=== PATIENT | male | born 1980 | race Two or more races ===

== ENCOUNTER 2017-02-25 02:48 | Emergency (ER) | payer MEDICAID, OTHER ==
[2017-02-25 02:59] VITALS: BP 128/90
[2017-02-25] MEDS ORDERED: Sodium Chloride 0.9% 1,000 ML IV STA (03:08)
[2017-02-25] MEDS ORDERED: Sodium Chloride 0.9% 10 ML Syringe FLUSH PRN (03:08)
--- NOTE | 2017-02-25 04:22 | EDM.PDOC ---
ED HPI GENERAL MEDICAL PROBLEM - General Chief Complaint: Gastrointestinal Problem Stated Complaint: poss food poisoning Time Seen by Provider: 02/25/17 03:02 Source of Information: Reports: Patient History Limitations: Reports: No Limitations - History of Present Illness INITIAL COMMENTS - FREE TEXT/NARRATIVE: The patient presents with diarrhea. This has been going on for a few days. He recently switched from metformin and invonka to the combination pill. He has also not been eating good. He has been out of town working and eating lots of gas station food. He has been incontinent of stool at times. He has no fever, chills, cough, chest pain or shortness of breath. He has no abdominal pain, nausea or vomiting. Onset: Gradual Duration: Day(s): Improves with: Reports: None Worsens with: Reports: None Associated Symptoms: Denies: Chest Pain, Fever/Chills, Nausea/Vomiting, Shortness of Breath Abdomen Pain Score (Numeric/FACES): 4 - Related Data Allergies Allergy/AdvReac Type Severity Reaction Status Date / Time No Known Allergies Allergy Verified 02/25/17 02:59 Home Meds: Home Meds Canagliflozin/Metformin HCl [Invokamet 50-1,000 mg Tablet] 1 tab PO BID [History] Ciprofloxacin HCl [Cipro] 500 mg PO BID #6 tablet 02/25/17 [Rx] Past Medical History Cardiovascular History: Reports: None Respiratory History: Reports: None Gastrointestinal History: Reports: None Genitourinary History: Reports: None Musculoskeletal History: Reports: None Neurological History: Reports: None Psychiatric History: Reports: None Endocrine/Metabolic History: Reports: Diabetes, Type II Hematologic History: Reports: None Immunologic History: Reports: None Oncologic (Cancer) History: Reports: None - Past Surgical History Head Surgeries/Procedures: Reports: None HEENT Surgical History: Reports: Other (See Below) Dermatological Surgical History: Reports: Other (See Below) Social & Family History - Tobacco Use Smoking Status *Q: Unknown Ever Smoked Years of Tobacco use: 16 Packs/Tins Daily: 0.2 Used Tobacco, but Quit: No - Caffeine Use Caffeine Use: Reports: Coffee, Energy Drinks, Soda - Alcohol Use Days Per Week of Alcohol Use: 1 Number of Drinks Per Day: 12 Total Drinks Per Week: 12 - Recreational Drug Use Recreational Drug Use: Yes Drug Use in Last 12 Months: Yes Recreational Drug Type: Reports: Methamphetamine Recreational Drug Use Frequency: Not Used In Over 1 Month Recreational Drug Last Use: September 2014 - Living Situation & Occupation Living situation: Reports: Occupation: Employed ED ROS GENERAL - Review of Systems Review Of Systems: See Below Constitutional: Reports: No Symptoms HEENT: Reports: No Symptoms Respiratory: Reports: No Symptoms Cardiovascular: Reports: No Symptoms Endocrine: Reports: No Symptoms GI/Abdominal: Reports: Diarrhea. Denies: Abdominal Pain, Nausea, Vomiting : Reports: No Symptoms Musculoskeletal: Reports: No Symptoms ED EXAM, GI/ABD - Physical Exam Exam: See Below Exam Limited By: No Limitations General Appearance: Alert, No Apparent Distress Ears: Normal External Exam Nose: Normal Inspection Head: Atraumatic, Normocephalic Neck: Normal Inspection Respiratory/Chest: No Respiratory Distress, Lungs Clear, Normal Breath Sounds Cardiovascular: Regular Rate, Rhythm, No Edema, No Murmur GI/Abdominal: Soft, Non-Tender, No Organomegaly, No Mass Back Exam: Normal Inspection Extremities: Normal Inspection Course - Vital Signs Last Recorded V/S: Last Vital Signs Temp 98.2 F 02/25/17 02:53 Pulse 70 02/25/17 02:53 Resp 18 02/25/17 02:53 BP 128/90 02/25/17 02:53 Pulse Ox 98 02/25/17 02:53 Orthostatic Blood Pressure [ 115/87 Standing] Orthostatic Blood Pressure [ 128/90 Supine] - Orders/Labs/Meds Orders: Active Orders 24 hr Category Date Time Status Peripheral IV Care [RC] . DIRECTED Care 02/25/17 03:08 Active C DIFFICILE BY PCR W/NAP1 [MOLEC] Stat Lab 02/25/17 03:29 Received CULTURE STOOL + SHIGATOX [RM] Stat Lab 02/25/17 03:29 Ordered Sodium Chloride 0.9% [Saline Flush] Med 02/25/17 03:08 Active 10 ml FLUSH ASDIRECTED PRN Peripheral IV Insertion Adult [OM.PC] Stat Oth 02/25/17 03:08 Ordered Medication Orders Sodium Chloride (Saline Flush) 10 ml FLUSH ASDIRECTED PRN PRN Reason: Keep Vein Open Last Admin: 02/25/17 03:15 Dose: 10 ml Labs: Laboratory Tests 02/25/17 02/25/17 Range/Units 03:15 03:15 WBC 8.00 (4.23-9.07) K/mm3 RBC 4.40 L (4.63-6.08) M/mm3 Hgb 13.2 L (13.7-17.5) gm/L Hct 38.4 L (40.1-51.0) % MCV 87.3 (79.0-92.2) fl MCH 30.0 (25.7-32.2) pg MCHC 34.4 (32.2-35.5) g/dl RDW Std Deviation 42.5 (35.1-43.9) fL Plt Count 179 (163-337) K/mm3 MPV 10.8 (9.4-12.3) fl Neut % (Auto) 53.0 (34.0-67.9) % Lymph % (Auto) 34.8 (21.8-53.1) % [place] % (Auto) 9.3 (5.3-12.2) % Eos % (Auto) 2.3 (0.8-7.0) Baso % (Auto) 0.3 (0.1-1.2) % Neut # (Auto) 4.26 (1.78-5.38) K/mm3 Lymph # (Auto) 2.78 (1.32-3.57) K/mm3 [place] # (Auto) 0.74 (0.30-0.82) K/mm3 Eos # (Auto) 0.18 (0.04-0.54) K/mm3 Baso # (Auto) 0.02 (0.01-0.08) K/mm3 Sodium 138 (136-145) mEq/L Potassium 4.1 (3.5-5.1) mEq/L Chloride 103 (98-107) mEq/L Carbon Dioxide 28 (21-32) mEq/L Anion Gap 11.1 (5-15) BUN 19 H (7-18) mg/dL Creatinine 1.1 (0.7-1.3) mg/dL Est Cr Clr Drug Dosing TNP Estimated GFR (MDRD) > 60 (>60) mL/min BUN/Creatinine Ratio 17.3 (14-18) Glucose 306 H (74-106) mg/dL Calcium 8.6 (8.5-10.1) mg/dL Total Bilirubin 0.3 (0.2-1.0) mg/dL AST 9 L (15-37) U/L ALT 19 (16-63) U/L Alkaline Phosphatase 121 H (46-116) U/L Total Protein 7.1 (6.4-8.2) g/dl Albumin 3.4 (3.4-5.0) g/dl Globulin 3.7 gm/dL Albumin/Globulin Ratio 0.9 L (1-2) Lipase 84 (73-393) U/L Meds: Medications Generic Name Dose Route Start Last Admin Trade Name Freq PRN Reason Stop Dose Admin Sodium Chloride 10 ml 02/25/17 03:08 02/25/17 03:15 Saline Flush FLUSH 10 ml ASDIRECTED PRN Administration Keep Vein Open Discontinued Medications Generic Name Dose Route Start Last Admin Trade Name Freq PRN Reason Stop Dose Admin Sodium Chloride 1,000 mls @ 1,000 mls/hr 02/25/17 03:08 02/25/17 03:18 Normal Saline IV 02/25/17 04:07 1,000 mls/hr .BOLUS STA Administration - Re-Assessments/Exams Free Text/Narrative Re-Assessment/Exam: 02/25/17 04:22 I have ordered an IV NS bolus, labs and a stool sample. His stool was black and my nurse checked it and it was negative. His CBC looks good. His blood sugar was 309. I will not have stool results for a few days. This could be infectious. This may also be from his medication. I will give him a dose of levaquin here and get him on some cipro for a few days. I will have him follow up with Noelle about getting back on his old medication. Departure - Departure Time of Disposition: 04:35 Disposition: Home, Self-Care 01 Condition: Good Clinical Impression: Diarrhea Qualifiers: Diarrhea type: unspecified type Qualified Code(s): R19.7 - Diarrhea, unspecified - Discharge Information Prescriptions: Ciprofloxacin HCl [Cipro] 500 mg PO BID #6 tablet Referrals: Noelle Newman PA [Primary Care Provider] - 2 Days Forms: ED Department Discharge Additional Instructions: Take the cipro 2 times per day. Call Noelle and see if you can get back on your old medication. Drink plenty of fluids. Please return if you are worse. - My Orders Last 24 Hours: My Active Orders 02/25/17 03:08 Peripheral IV Care [RC] . DIRECTED Sodium Chloride 0.9% [Saline Flush] 10 ml FLUSH ASDIRECTED PRN Peripheral IV Insertion Adult [OM.PC] Stat 02/25/17 03:29 C DIFFICILE BY PCR W/NAP1 [MOLEC] Stat CULTURE STOOL + SHIGATOX [RM] Stat - Assessment/Plan Last 24 Hours: My Active Orders 02/25/17 03:08 Peripheral IV Care [RC] . DIRECTED Sodium Chloride 0.9% [Saline Flush] 10 ml FLUSH ASDIRECTED PRN Peripheral IV Insertion Adult [OM.PC] Stat 02/25/17 03:29 C DIFFICILE BY PCR W/NAP1 [MOLEC] Stat CULTURE STOOL + SHIGATOX [RM] Stat
[2017-02-25] MEDS ORDERED: Levofloxacin 500 MG Tab PO ONE (04:36)
== END 2017-02-25 04:55 | disposition home or self-care (01) ==
LOC: EDBD → JD.ED 02:48 → EDBD 02:48 → JD.ED 04:55
DX: R19.7 Diarrhea, unspecified (principal); E11.9 Type 2 diabetes mellitus without complications
CPT/HCPCS: 36415; 80053; 83690; 85025; 87046; 87427; 87493; 96360; 99284; A9270; J7040; J7050; 99282

== ENCOUNTER 2017-05-25 19:47 | Emergency (ER) | payer BC, MEDICAID ==
[2017-05-25 20:03] VITALS: BP 128/83
--- NOTE | 2017-05-25 21:15 | EDM.PDOC ---
ED HPI GENERAL MEDICAL PROBLEM - General Chief Complaint: Lower Extremity Injury/Pain Stated Complaint: POSS FOOT INFECTION Time Seen by Provider: 05/25/17 20:15 Source of Information: Reports: Patient History Limitations: Reports: No Limitations - History of Present Illness INITIAL COMMENTS - FREE TEXT/NARRATIVE: 36-year-old male presents for evaluation treatment of swelling, redness, pain and purulent discharge from the right great toe. Patient first noticed the symptoms this morning. He is a type II diabetic on oral medications. has had anything like this before. Reports purulent discharge from the lateral aspect the right foot great toe. Also has appreciated increased swelling, pain and redness to the right great toe. He denies any fevers, chills, nausea or vomiting. Does not see a homicide detective regularly. Onset: Today, Sudden Location: Reports: Lower Extremity, Right Left Feet Pain Score (Numeric/FACES): 0 - Related Data Allergies Allergy/AdvReac Type Severity Reaction Status Date / Time No Known Allergies Allergy Verified 02/25/17 02:59 Home Meds: Home Meds Canagliflozin/Metformin HCl [Invokamet 50-1,000 mg Tablet] 1 tab PO 02/25/17 [ History] Canagliflozin [Invokana] 300 mg PO 05/25/17 [History] Cephalexin [IJD: Cephalexin] 500 mg PO .EVERY 8 HOURS #30 cap 05/25/17 [Rx] Sulfamethoxazole/Trimethoprim [Bactrim Ds Tablet] 1 each PO BID #20 tablet 05/25 [Rx] metFORMIN HCl [Metformin HCl] 1,000 mg PO BID 05/25/17 [History] Past Medical History Cardiovascular History: Reports: None Respiratory History: Reports: None Gastrointestinal History: Reports: None Genitourinary History: Reports: None Musculoskeletal History: Reports: None Neurological History: Reports: None Psychiatric History: Reports: None Endocrine/Metabolic History: Reports: Diabetes, Type II Hematologic History: Reports: None Immunologic History: Reports: None Oncologic (Cancer) History: Reports: None - Past Surgical History Head Surgeries/Procedures: Reports: None HEENT Surgical History: Reports: Other (See Below) Dermatological Surgical History: Reports: Other (See Below) Social & Family History - Tobacco Use Smoking Status *Q: Current Every Day Smoker Years of Tobacco use: 22 Packs/Tins Daily: 0.5 Used Tobacco, but Quit: No - Caffeine Use Caffeine Use: Reports: Coffee, Energy Drinks, Soda - Alcohol Use Days Per Week of Alcohol Use: 1 Number of Drinks Per Day: 12 Total Drinks Per Week: 12 - Recreational Drug Use Recreational Drug Use: No Drug Use in Last 12 Months: Yes Recreational Drug Type: Reports: Methamphetamine Recreational Drug Use Frequency: Not Used In Over 1 Month Recreational Drug Last Use: September 2014 - Living Situation & Occupation Living situation: Reports: Occupation: Employed Review of Systems - Review of Systems Review Of Systems: See Below Constitutional: Denies: Chills, Fever GI/Abdominal: Denies: Nausea, Vomiting Musculoskeletal: Reports: Foot Pain (right great toe swelling, erythema, pain and discharge from the lateral aspect of the great toe nail) Skin: Reports: Erythema ED EXAM, GENERAL - Physical Exam Exam: See Below Exam Limited By: No Limitations General Appearance: Alert, WD/WN, No Apparent Distress Respiratory/Chest: No Respiratory Distress Cardiovascular: Normal Peripheral Pulses, Regular Rate, Rhythm Peripheral Pulses: 2+: Posterior Tibial (L), Posterior Tibial (R), Dorsalis Pedis (L), Dorsalis Pedis (R) Extremities: Normal Inspection, Other (tenderness to palpation of the right great toe, swelling and erythema noted to the right great toe; approximately 1cm in diameter abscess to the lateral aspect of the nail with an open area and drainage present) Neurological: Alert, Oriented, Normal Cognition Psychiatric: Normal Affect, Normal Mood Skin Exam: Warm, Dry, Normal Color Course - Vital Signs Last Recorded V/S: Last Vital Signs Temp 36.4 C 05/25/17 20:00 Pulse 86 05/25/17 20:00 Resp 16 05/25/17 20:00 BP 128/83 05/25/17 20:00 Pulse Ox 98 05/25/17 20:00 - Orders/Labs/Meds Orders: Active Orders 24 hr Category Date Time Status CULTURE WOUND [RM] Stat Lab 05/25/17 20:57 Results - Re-Assessments/Exams Free Text/Narrative Re-Assessment/Exam: 05/25/17 21:06 Culture obtained. Follow-up with podiatry. Bactrim and cephalexin started. Discharge instructions as documented. Departure - Departure Time of Disposition: 21:10 Disposition: Home, Self-Care 01 Condition: Fair Clinical Impression: Paronychia of great toe of right foot - Discharge Information Prescriptions: Cephalexin [IJD: Cephalexin] 500 mg PO .EVERY 8 HOURS #30 cap Sulfamethoxazole/Trimethoprim [Bactrim Ds Tablet] 1 each PO BID #20 tablet Instructions: Paronychia, [id number] Referrals: Noelle Newman PA [Primary Care Provider] - Arsen Moreno II, DPM [Physician] - Forms: ED Department Discharge, ED Return to Work/School Form Additional Instructions: soap the foot in epsome salt and warm water 2-3 times a day for 20-30 minutes Bactrim one tablet twice a day for 10 days. Cephalexin 1 tab 3 times a day for 10 days. Take antibiotics with some food. Follow-up with podiatry this week. Recommend Dr. Moreno. Please call [phone] to schedule an appointment with him at the [facility]. [id number] Tylenol or Motrin as needed for pain relief. Please return to the ER if your symptoms change or worsen. - My Orders Last 24 Hours: My Active Orders 05/25/17 20:57 CULTURE WOUND [RM] Stat - Assessment/Plan Last 24 Hours: My Active Orders 05/25/17 20:57 CULTURE WOUND [RM] Stat
== END 2017-05-25 21:23 | disposition home or self-care (01) ==
LOC: JD.ED 19:47
DX: L03.031 Cellulitis of right toe (principal); L02.611 Cutaneous abscess of right foot; E11.9 Type 2 diabetes mellitus without complications; F17.210 Nicotine dependence, cigarettes, uncomplicated; Z79.84 Long term (current) use of oral hypoglycemic drugs
CPT/HCPCS: 87070; 87077; 87186; 99283; 99284

== ENCOUNTER 2017-09-16 22:07 | Emergency (ER) | payer BC, MEDICAID ==
[2017-09-16 22:28] VITALS: BP 143/82
--- NOTE | 2017-09-16 22:42 | EDM.PDOC ---
ED HPI GENERAL MEDICAL PROBLEM - General Chief Complaint: Abdominal Pain Stated Complaint: LEFT SIDE PAIN Time Seen by Provider: 09/16/17 22:38 Source of Information: Reports: Patient History Limitations: Reports: No Limitations - History of Present Illness INITIAL COMMENTS - FREE TEXT/NARRATIVE: 36-year-old male presents to the ED with diffuse periumbilical pain that intermittently radiates up into his left upper quadrant and left flank area. States it's been coming and going for the last 2-3 days. He did drink alcohol quite heavily around Stewart time but he never drank heavily over New Year's. He is worried that his pancreas might be sick. By history he has had pancreatitis in the past. States his bowel function is fairly normal although stools tend to be quite firm. Denies any genitourinary complaints or any obvious hematuria. No history of kidney stones. Pain does tend to come and go i.e. colicky component he has had no fever or chills. Eating well. Patient is a type II diabetic controlled with metformin and Invokana. Invocana is known to cause pancreatitis. He reports she's been on off this medication mostly for about a year. Of note he does not take check his blood sugars. Therefore really has no idea how well his diabetes is controlled. Onset: Gradual (Intermittent problems over the last 2-3 days) Onset Date: 09/14/17 Duration: Day(s): (Has been having intermittent abdominal pain for the last 3 days.) Location: Reports: Abdomen (Her umbilical pain radiating to the left upper abdomen and left flank area.), Back (Left flank area.) Quality: Reports: Ache, Other (Pain is constant but has a strong colicky component.) Severity: Moderate (Not necessary worse by eating.) Improves with: Reports: None Worsens with: Reports: None Context: Denies: Activity, Exercise, Lifting, Sick Contact, Trauma, Other Associated Symptoms: Denies: No Other Symptoms, Confusion, Chest Pain, Cough, cough w sputum, Diaphoresis, Fever/Chills, Headaches, Loss of Appetite, Malaise , Nausea/Vomiting, Rash, Seizure, Shortness of Breath, Syncope, Weakness, Other Treatments 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 (see below) Abdominal Pain Score (Numeric/FACES): 4 - Related Data Allergies Allergy/AdvReac Type Severity Reaction Status Date / Time No Known Allergies Allergy Verified 09/16/17 22:23 Home Meds: Home Meds Canagliflozin [Invokana] 300 mg PO DAILY 05/25/17 [History] metFORMIN HCl [Metformin HCl] 1,000 mg PO BID 05/25/17 [History] Past Medical History Cardiovascular History: Reports: None Respiratory History: Reports: None Gastrointestinal History: Reports: None Genitourinary History: Reports: None Musculoskeletal History: Reports: None Neurological History: Reports: None Psychiatric History: Reports: None Endocrine/Metabolic History: Reports: Diabetes, Type II Hematologic History: Reports: None Immunologic History: Reports: None Oncologic (Cancer) History: Reports: None - Past Surgical History Head Surgeries/Procedures: Reports: None HEENT Surgical History: Reports: Other (See Below) Dermatological Surgical History: Reports: Other (See Below) Social & Family History - Tobacco Use Smoking Status *Q: Former Smoker Years of Tobacco use: 22 Packs/Tins Daily: 0.5 Used Tobacco, but Quit: Yes Month Tobacco Last Used: 09/13/17 - Caffeine Use Caffeine Use: Reports: Coffee - Alcohol Use Days Per Week of Alcohol Use: 1 Number of Drinks Per Day: 12 Total Drinks Per Week: 12 - Recreational Drug Use Recreational Drug Use: Yes Drug Use in Last 12 Months: Yes Recreational Drug Type: Reports: Marijuana/Hashish, Methamphetamine Other Recreational Drug Type: pt stopped using, it has been 6 months Recreational Drug Use Frequency: Not Used In Over 1 Month Recreational Drug Last Use: September 2014 - Living Situation & Occupation Living situation: Reports: Occupation: Employed ED ROS GENERAL - Review of Systems Review Of Systems: See Below Constitutional: Denies: Fever, Chills, Malaise, Weakness, Fatigue, Decreased Appetite, Weight Loss HEENT: Reports: No Symptoms Respiratory: Reports: No Symptoms Cardiovascular: Reports: No Symptoms Endocrine: Reports: Fatigue GI/Abdominal: Reports: Abdominal Pain (Periumbilical and then radiates to the left upper quadrant of the abdomen is slightly into the left flank area. Patient pain tends to come and go.), Constipation. Denies: Diarrhea, Nausea, Vomiting : Reports: No Symptoms Musculoskeletal: Reports: No Symptoms Skin: Reports: No Symptoms Neurological: Reports: No Symptoms Psychiatric: Reports: No Symptoms Hematologic/Lymphatic: Reports: No Symptoms Immunologic: Reports: No Symptoms ED EXAM, GI/ABD - Physical Exam Exam: See Below Exam Limited By: No Limitations General Appearance: Alert, WD/WN, No Apparent Distress Eyes: Bilateral: Normal Appearance (No jaundice.) Throat/Mouth: Normal Inspection, Normal Lips, Normal Oropharynx Head: Atraumatic, Normocephalic Neck: Normal Inspection, Supple, Non-Tender, Full Range of Motion. No: Lymphadenopathy (L), Lymphadenopathy (R) Respiratory/Chest: No Respiratory Distress, Lungs Clear, Normal Breath Sounds, Chest Non-Tender, Decreased Breath Sounds Cardiovascular: Normal Peripheral Pulses, Regular Rate, Rhythm, No Edema, No Gallop, No Murmur, No Rub GI/Abdominal Exam: Normal Bowel Sounds, Soft, No Abnormal Bruit, No Mass, Pelvis Stable, Tender (Patient has tenderness across the upper abdomen. To deep palpation along the right costal margin as well as the left costal margin and it seems to be quite diffuse. It is almost all supraumbilical.). No: Abnormal Bowel Sounds (Male) Exam: Normal Inspection Back Exam: Normal Inspection, Full Range of Motion, Paraspinal Tenderness. No: CVA Tenderness (L), CVA Tenderness (R) Extremities: Normal Range of Motion, Non-Tender, Normal Capillary Refill Neurological: Alert, Oriented, CN II-XII Intact, Normal Cognition Psychiatric: Normal Affect, Normal Mood Skin Exam: Warm, Dry, Intact, Normal Color, No Rash Course - Vital Signs Last Recorded V/S: Last Vital Signs Temp 36.1 C 09/16/17 22:24 Pulse 85 09/16/17 22:24 Resp 18 09/16/17 22:24 BP 143/82 H 09/16/17 22:24 Pulse Ox 97 09/16/17 22:24 - Orders/Labs/Meds Orders: Active Orders 24 hr Category Date Time Status Abdomen 1V Flat [CR] Stat Exams 09/16/17 22:48 Taken Labs: Laboratory Tests 09/16/17 09/16/17 09/16/17 Range/Units 23:04 23:04 23:04 WBC 8.21 (4.23-9.07) K/mm3 RBC 4.54 L (4.63-6.08) M/mm3 Hgb 13.8 (13.7-17.5) gm/L Hct 39.6 L (40.1-51.0) % MCV 87.2 (79.0-92.2) fl MCH 30.4 (25.7-32.2) pg MCHC 34.8 (32.2-35.5) g/dl RDW Std Deviation 41.4 (35.1-43.9) fL Plt Count 181 (163-337) K/mm3 MPV 10.3 (9.4-12.3) fl Neutrophils % (Manual) 54 (40-60) % Band Neutrophils % 0 (0-10) % Lymphocytes % (Manual) 28 (20-40) % Atypical Lymphs % 6 % Monocytes % (Manual) 8 (2-10) % Eosinophils % (Manual) 2 (0.8-7.0) % Basophils % (Manual) 2 H (0.2-1.2) Platelet Estimate Adequate Plt Morphology Comment Normal RBC Morph Comment Normal PT 9.4 (8.0-13.0) SECONDS INR 0.87 Sodium 137 (136-145) mEq/L Potassium 4.1 (3.5-5.1) mEq/L Chloride 101 (98-107) mEq/L Carbon Dioxide 27 (21-32) mEq/L Anion Gap 13.1 (5-15) BUN 22 H (7-18) mg/dL Creatinine 1.2 (0.7-1.3) mg/dL Est Cr Clr Drug Dosing 80.33 mL/min Estimated GFR (MDRD) > 60 (>60) mL/min BUN/Creatinine Ratio 18.3 H (14-18) Glucose 381 H (74-106) mg/dL Hemoglobin A1c (4.50-6.20) % Calcium 9.2 (8.5-10.1) mg/dL Magnesium 2.1 (1.8-2.4) mg/dl Total Bilirubin 0.2 (0.2-1.0) mg/dL AST 10 L (15-37) U/L ALT 29 (16-63) U/L Alkaline Phosphatase 136 H (46-116) U/L C-Reactive Protein < 0.2 (<1.0) mg/dL Total Protein 7.1 (6.4-8.2) g/dl Albumin 3.5 (3.4-5.0) g/dl Globulin 3.6 gm/dL Albumin/Globulin Ratio 1.0 (1-2) Lipase 150 (73-393) U/L Urine Color (Yellow) Urine Appearance (Clear) Urine pH (5.0-8.0) Ur Specific Sprague (1.005-1.030) Urine Protein (Negative) Urine Glucose (UA) (Negative) Urine Ketones (Negative) Urine Occult Blood (Negative) Urine Nitrite (Negative) Urine Bilirubin (Negative) Urine Urobilinogen (0.2-1.0) Ur Leukocyte Esterase (Negative) Urine RBC (0-5) /hpf Urine WBC (0-5) /hpf Ur Epithelial Cells (0-5) /hpf Urine Bacteria (FEW) /hpf Urine Mucus (FEW) /hpf 09/16/17 09/16/17 Range/Units 23:04 23:15 WBC (4.23-9.07) K/mm3 RBC (4.63-6.08) M/mm3 Hgb (13.7-17.5) gm/L Hct (40.1-51.0) % MCV (79.0-92.2) fl MCH (25.7-32.2) pg MCHC (32.2-35.5) g/dl RDW Std Deviation (35.1-43.9) fL Plt Count (163-337) K/mm3 MPV (9.4-12.3) fl Neutrophils % (Manual) (40-60) % Band Neutrophils % (0-10) % Lymphocytes % (Manual) (20-40) % Atypical Lymphs % % Monocytes % (Manual) (2-10) % Eosinophils % (Manual) (0.8-7.0) % Basophils % (Manual) (0.2-1.2) Platelet Estimate Plt Morphology Comment RBC Morph Comment PT (8.0-13.0) SECONDS INR Sodium (136-145) mEq/L Potassium (3.5-5.1) mEq/L Chloride (98-107) mEq/L Carbon Dioxide (21-32) mEq/L Anion Gap (5-15) BUN (7-18) mg/dL Creatinine (0.7-1.3) mg/dL Est Cr Clr Drug Dosing mL/min Estimated GFR (MDRD) (>60) mL/min BUN/Creatinine Ratio (14-18) Glucose (74-106) mg/dL Hemoglobin A1c 10.00 H (4.50-6.20) % Calcium (8.5-10.1) mg/dL Magnesium (1.8-2.4) mg/dl Total Bilirubin (0.2-1.0) mg/dL AST (15-37) U/L ALT (16-63) U/L Alkaline Phosphatase (46-116) U/L C-Reactive Protein (<1.0) mg/dL Total Protein (6.4-8.2) g/dl Albumin (3.4-5.0) g/dl Globulin gm/dL Albumin/Globulin Ratio (1-2) Lipase (73-393) U/L Urine Color Light yellow (Yellow) Urine Appearance Clear (Clear) Urine pH 7.0 (5.0-8.0) Ur Specific Sprague 1.015 (1.005-1.030) Urine Protein Trace H (Negative) Urine Glucose (UA) 2+ H (Negative) Urine Ketones Negative (Negative) Urine Occult Blood Trace-intact H (Negative) Urine Nitrite Negative (Negative) Urine Bilirubin Negative (Negative) Urine Urobilinogen 0.2 (0.2-1.0) Ur Leukocyte Esterase Negative (Negative) Urine RBC 0-5 (0-5) /hpf Urine WBC 0-5 (0-5) /hpf Ur Epithelial Cells 0-5 (0-5) /hpf Urine Bacteria Not seen (FEW) /hpf Urine Mucus Not seen (FEW) /hpf Meds: Medications Discontinued Medications Generic Name Dose Route Start Last Admin Trade Name Freq PRN Reason Stop Dose Admin Magnesium Citrate 240 ml 09/16/17 23:58 09/17/17 00:08 Citrate Of Magnesia PO 09/16/17 23:59 240 ml ONETIME ONE Administration - Radiology Interpretation Free Text/Narrative:: 36-year-old male of [place] descent presents to the ED with diffuse persistent upper abdominal pain. Often has periumbilical pain that then travels towards the left upper quadrant of the abdomen and slightly into the left flank area. Pain seems to be coming more intense last few days. Several minimal vomit. Bowel function is fairly normally does admit to stools being somewhat firmer and difficult to pass. He is able to eat normally. He is a type II diabetic controlled with metformin and Invokana. He has a history of pancreatitis from alcohol abuse in the past. Last drank heavily around [place]ik time. He reports blood sugars are fairly well controlled usually in the 150-180 range. His history and examination are compatible with possible pancreatitis. Invocana is known to potentially cause pancreatitis. Plan at this time will be lab work including a serum lipase CRP CMP. One view of the abdomen will be performed. - Re-Assessments/Exams Free Text/Narrative Re-Assessment/Exam: 09/16/17 23:53 KUB is slightly done. It does reveal increased stool throughout the entire colon particularly transverse colon left upper quadrant where the patient is experiencing his pain.Labs reveal a normal white count at 8.21. Differential is pending. Hemoglobin is 13.8 with hematocrit 39.6. Glucose 181, 000. Sodium is 137. Potassium 4.1. Toward 101 bicarbonate 27. Anion gap is normal at 13.1. BUNs 22. Creatinine is 1.2 EGFR remains greater than 60. Glucose today is 381. Calcium is 9.2 magnesium 2.1. Liver function reveals a bilirubin of 0.2. AST is 10 ALT is 29. Alkaline phosphatase today is mildly elevated 136. C-reactive protein is less than 0.2. Total protein is normal at 7.1. Albumin fraction normal at 3.5. Lipase normal at 150. Urine shows 2+ glucosuria. Trace of occult blood. No signs of infection. Glycosylated protein is pending. It appears it is hyper glycemia is likely contributing to volume depletion and constipation issues. Plan will be to treat him with Citroma 7 ounces by mouth now with 4-5 ounces of juice of choice to provide bowel cleanse relieve his abdominal pain. However he needs to follow-up with his primary care physician in regards to diabetic control. Departure - Departure Time of Disposition: 23:59 Disposition: Home, Self-Care 01 Condition: Fair Clinical Impression: Constipation by delayed colonic transit Abdominal pain Qualifiers: Abdominal location: left upper quadrant Qualified Code(s): R10.12 - Left upper quadrant pain - Discharge Information Instructions: Constipation, Adult, Abdominal Pain, Adult, [id number] Referrals: Noelle Newman PA [Primary Care Provider] - Forms: ED Department Discharge Additional Instructions: Evaluation the emergency room tonight in regards to recurrent periumbilical abdominal pain that radiates up towards the left upper quadrant of the abdomen and left flank. This of been coming and going for the last several days. No associated nausea or vomiting. Noted stools to be a bit harder and more difficult to pass as of late. Examination reveals diffuse tenderness across the upper abdomen. Therefore lab work was done to make sure there was no inflammation of your pancreas and none was found. Lab work in fact proved to be normal other than an elevated blood sugar at 381 and an elevated glycosylated protein which looks at your sugars over the last 3 months to be too high. Therefore your diabetes is not in very good control and you need to follow-up with your personal care provider in this regard. The x-ray of the unexplained scopolamine terms that there is increased stool throughout the entire colon particularly the mid: Across the upper abdomen and left upper quadrant. Constipation is occurred because of uncontrolled blood sugars. Elevated blood sugars cause dehydration to occur and the body will take fluid from the got which in turn will form of the stitch stool too early causing it to get harder than normal. Treatment is therefore to take 8 ounces of magnesium citrate with 5 or 6 ounces of juice of choice this may be Gatorade or Powerade as well. Drink fairly rapidly and then follow-up with a couple glasses of water over the next hour or 2. It usually starts to work in 1-2 hours and her bowels will typically below 4-5 times often ending in a bit of diarrhea. This will provide bowel cleanse and relieve your abdominal pain. Again follow-up with personal physician as planned. - My Orders Last 24 Hours: My Active Orders 09/16/17 22:48 Abdomen 1V Flat [CR] Stat - Assessment/Plan Last 24 Hours: My Active Orders 09/16/17 22:48 Abdomen 1V Flat [CR] Stat
[2017-09-16] MEDS ORDERED: Magnesium Citrate Solution 296 ML Bottle PO ONE (23:58)
--- NOTE | 2017-09-17 09:06 | CR ---
Abdomen: Supine view of the abdomen was obtained. Comparison: No prior abdominal x-ray. Bowel gas pattern appears within normal limits. Calcifications are seen within the right side of the abdomen adjacent to the transverse process of L4 which are likely dystrophic and incidental. Additional calcification is seen adjacent to the superior vertebral body of L3 which is likely dystrophic and incidental. Calcifications within the pelvis are seen which are compatible with phleboliths. Bony density seen off the superior acetabulum of the left hip which is felt to be incidental. No additional abnormality is seen. Impression: 1. Incidental findings as noted above. Diagnostic code #3
== END 2017-09-17 00:08 | disposition home or self-care (01) ==
LOC: JD.ED 22:07
DX: K59.01 Slow transit constipation (principal); R10.12 Left upper quadrant pain; E11.9 Type 2 diabetes mellitus without complications; Z87.891 Personal history of nicotine dependence; Z79.84 Long term (current) use of oral hypoglycemic drugs; Z79.899 Other long term (current) drug therapy
CPT/HCPCS: 36415; 74018; 80053; 81001; 83036; 83690; 83735; 85025; 85610; 86140; 99284; A9270; 99283

== ENCOUNTER 2018-03-04 22:01 | Emergency (ER) | payer SELFPAY ==
[2018-03-04 22:18] VITALS: BP 126/89
--- NOTE | 2018-03-04 22:47 | EDM.PDOC ---
ED HPI GENERAL MEDICAL PROBLEM - General Chief Complaint: Lower Extremity Injury/Pain Stated Complaint: LEFT ARM AND LEG PAIN Time Seen by Provider: 03/04/18 22:29 Source of Information: Reports: Patient, Family () History Limitations: Reports: No Limitations - History of Present Illness INITIAL COMMENTS - FREE TEXT/NARRATIVE: 37-year-old male presents to the ED with several problems. #1 he's had previous deep surgical infection left medial thigh that required open incision and drainage due to concerns for necrotizing fasciitis development. This occurred about 4 years ago. It seemed to start out as a boil infection. He reports he has similar pain in the same area and is concerned that there may be recurrent infection. He also has pain in the distal medial thigh particularly over his distal femur medially. Third complaint is pain left lateral elbow area. 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 States it feels as if his overuse to his leg like walked too far. Onset: Gradual Onset Date: 02/25/18 (Left elbow has been hurting for about 10 days. Left lower leg started hurting 3-4 days ago. Left inner thigh discomfort for the last 3-4 days.) Duration: Day(s): Location: Reports: Upper Extremity, Left, Lower Extremity, Left (Left lateral elbow left lower medial thigh), Other (Left groin medial thigh.) Quality: Reports: Ache, Other (Discomfort) Severity: Moderate Improves with: Reports: Rest Worsens with: Reports: Movement Context: Denies: Activity (Worse with walking.), Exercise, Lifting, Sick Contact , Trauma, Other Associated Symptoms: Denies: No Other Symptoms, Confusion, Chest Pain, Cough, cough w sputum, Diaphoresis, Fever/Chills, Headaches, Loss of Appetite, Malaise , Nausea/Vomiting, Rash, Seizure, Syncope, Weakness Treatments FAMILY NURSE: Reports: NSAIDS (Motrin when necessary), Other (see below) Left Upper Leg Pain Score (Numeric/FACES): 8 - Related Data Allergies Allergy/AdvReac Type Severity Reaction Status Date / Time No Known Allergies Allergy Verified 03/04/18 22:17 Home Meds: Home Meds Canagliflozin [Invokana] 500 mg PO DAILY 05/25/17 [History] metFORMIN HCl [Metformin HCl] 1,000 mg PO BID 05/25/17 [History] Diclofenac Sodium [Voltaren] 50 mg PO TID #30 tab.ec 03/04/18 [Rx] Fluconazole [Diflucan] 150 mg PO ONETIME #1 tab 03/04/18 [Rx] Past Medical History - Past Health History Medical/Surgical History: Denies Medical/Surgical History Cardiovascular History: Reports: None Respiratory History: Reports: None Gastrointestinal History: Reports: None Genitourinary History: Reports: None Musculoskeletal History: Reports: None Neurological History: Reports: None Psychiatric History: Reports: None Endocrine/Metabolic History: Reports: Diabetes, Type II Hematologic History: Reports: None Immunologic History: Reports: None Oncologic (Cancer) History: Reports: None - Past Surgical History Head Surgeries/Procedures: Reports: None HEENT Surgical History: Reports: Other (See Below) Dermatological Surgical History: Reports: Other (See Below) Social & Family History - Family History Family Medical History: Noncontributory - Tobacco Use Smoking Status *Q: Current Every Day Smoker Years of Tobacco use: 20 Packs/Tins Daily: 0.2 - Caffeine Use Caffeine Use: Reports: Coffee - Recreational Drug Use Recreational Drug Use: Yes Recreational Drug Type: Reports: Marijuana/Hashish - Living Situation & Occupation Living situation: Reports: Occupation: Employed Review of Systems - Review of Systems Review Of Systems: See Below Constitutional: Reports: No Symptoms Eyes: Reports: No Symptoms Ears: Reports: No Symptoms Nose: Reports: No Symptoms Mouth/Throat: Reports: No Symptoms Respiratory: Reports: No Symptoms Cardiovascular: Reports: No Symptoms, Lightheadedness GI/Abdominal: Reports: No Symptoms Genitourinary: Reports: No Symptoms Musculoskeletal: Reports: Joint Pain (Left lateral elbow), Other (Pain distal right thigh pain medial left groin) Skin: Reports: Other Neurological: Reports: No Symptoms (Burning discomfort left medial groin.) Psychiatric: Reports: No Symptoms ED EXAM, GENERAL - Physical Exam Exam: See Below Exam Limited By: No Limitations General Appearance: Alert, WD/WN, No Apparent Distress, Anxious (Mildly anxious. ) (Male) Exam: Other ( is erythema in the medial thigh creases bilaterally compatible with tinea cruris or jock itch. There is scar tissue in the left medial groin from previous incision and drainage. Treated with Lamisil cream topically.) Extremities: Other (Examination of his left elbow shows lateral epicondylitis. 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 Of note he is right-hand dominant. Treatment will be Voltaren 50 mg 3 times a day. Third problem is pain distal left thigh it's a quadriceps tendon insertion site along the distal femur. There is no evidence of any DVT or pain along the greater saphenous vein.) Neurological: Alert, Oriented, CN II-XII Intact, Normal Cognition Course - Vital Signs Last Recorded V/S: Last Vital Signs Temp 36.3 C 03/04/18 22:14 Pulse 76 03/04/18 22:14 Resp 16 03/04/18 22:14 BP 126/89 03/04/18 22:14 Pulse Ox 98 03/04/18 22:14 - Radiology Interpretation Free Text/Narrative:: 37-year-old male presents the ED for evaluation of 3 separate problems. Initial one is pain in his medial left groin area. He's had previous incision and drainage for an infection there and concern was for necrotizing fasciitis at that time. He was opened and then had to pack the wound for several weeks before it healed by secondary intention. Examination actually reveals today he' s got more of a jock itch. Tinea cruris will be treated with topical Lamisil cream and Diflucan 150 mg by mouth. Second problem is pain in the left lateral elbow which on examination his lateral epicondylitis. Explained to him that this is an overuse type injury. Needs rest. Heat to the area when necessary. Voltaren 50 mg 3 times a day for the next 10 days prescribed third problem is pain in his left medial thigh and it seems to be localized to the distal quadriceps over the medial femoral condyle. It appears to be more of a tendinitis is that the deep muscular type pain. No evidence of DVT orders greater saphenous vein occlusion is evident. This too should respond to the Voltaren 50 mg 3 times a day. Explained to him again is more of an overuse type injury from climbing ladders etc. Follow-up with his personal care physician if any further problems occur. He may benefit from a steroid injection in his left lateral epicondyle if it doesn't settle down. Departure - Departure Time of Disposition: 22:40 Disposition: Home, Self-Care 01 Condition: Fair Clinical Impression: Jock itch, Lateral epicondylitis of left elbow, Tendinitis of left quadriceps tendon - Discharge Information Prescriptions: Diclofenac Sodium [Voltaren] 50 mg PO TID #30 tab.ec Fluconazole [Diflucan] 150 mg PO ONETIME #1 tab Instructions: Tennis Elbow, [id number], Jock Itch, [id number], Tendinitis, [id number] Referrals: Noelle Newman PA [Primary Care Provider] - Forms: ED Department Discharge Additional Instructions: Evaluation in the emergency room tonight in regards to 3 separate problems. Initial problem is a rash in the inner creases of your thighs bilaterally worse on the left side as compared to the right. Examination reveals this to be due to the yeast infection which we call tinea cruris. Is also known as jock itch. It occurs often in the summer months with sweating and working and are under shorts rubbing on the area. Topical antifungal cream Lamisil applied every night at bedtime for the next 2 weeks to clear this up. Lamisil is over-the- counter. He can be found in any drugstore. Also will give you an antifungal medication called Diflucan 150 mg tablet taken once which starts to work fairly rapidly to clear up this type of infection. Second problem was lateral epicondylitis of the left elbow. This is known as tennis elbow. It is deep and essentially an overuse injury with the type of work that you were doing with the tendons or inserting on the bone they are pulling loose like steel cables coming loose from concrete. This causes the body to set up an inflammatory response. Treatment is rest is much as possible. Use anti-inflammatory Voltaren 50 mg 3 times daily for the next 10 days to clear up inflammation. If it is not completely improved after 14 days of treatment you may need a shot of steroid in this area to take the pain and inflammation away completely. Third problem was inflammation and tendinitis on the medial aspect of your left femur bone. This is where quadriceps tendons insert. Again it is likely overuse injury from climbing particularly things like ladders. There is no evidence of any blood clot within the leg. Pain in the lower leg and thigh is not related to the pain in the left groin. Did respond to the Voltaren therapy. May apply ice or heat to the area if it is aching as either one may relieve the discomfort.
== END 2018-03-04 22:57 | disposition home or self-care (01) ==
LOC: JD.ED 22:01
DX: B35.6 Tinea cruris (principal); M77.12 Lateral epicondylitis, left elbow; M76.9 Unspecified enthesopathy, lower limb, excluding foot; F17.210 Nicotine dependence, cigarettes, uncomplicated; E11.9 Type 2 diabetes mellitus without complications; Z79.84 Long term (current) use of oral hypoglycemic drugs; Z79.899 Other long term (current) drug therapy
CPT/HCPCS: 99283

== ENCOUNTER 2018-06-17 11:09 | Observation (INO) | payer SELFPAY ==
[2018-06-17] MEDS ORDERED: Sodium Chloride 0.9% 1,000 ML IV ONE (11:32)
[2018-06-17] MEDS ORDERED: Nitroglycerin 0.4 MG Tab.SL SL ONE (11:32)
--- NOTE | 2018-06-17 11:34 | EDM.PDOC ---
ED HPI GENERAL MEDICAL PROBLEM - General Chief Complaint: Chest Pain Stated Complaint: CHEST PAIN Time Seen by Provider: 06/17/18 11:23 - History of Present Illness INITIAL COMMENTS - FREE TEXT/NARRATIVE: Patient is 37-year-old male accompanied by , presented today to the emergency department for an evaluation of chest pain for last few days. He stated that while he was sitting in his chair at home, he developed pain in his chest which is accompanied by shortness of breath, dizziness and headache. He did admit that he does have a history of hypertension and diabetes but does not take his medications secondary to lack of insurance. He stated that he used to smoke cigarettes then he quit for about a month or so, then after he started smoking again secondary to social stressors. He further stated that he used marijuana and methamphetamine which was approximately 10-14 days ago the last time he used. He did noted to have shortness of breath more often on exertion. He denies seeing his primary care provider for any of these symptoms for the past few days. He did take aspirin this morning prior to arrival. Currently he related his chest pain about 5 on a scale of 0-10. Pain is radiating to his jaw and lips, left arm which he described as tingling sensation. There is no specific aggravating or alleviating factors contributing to pain. He denies any recent traveling. He denies any other concerns at this time. Headache Pain Score (Numeric/FACES): 4 - Related Data Allergies Allergy/AdvReac Type Severity Reaction Status Date / Time No Known Allergies Allergy Verified 03/04/18 22:17 Home Meds: Home Meds Canagliflozin [Invokana] 500 mg PO DAILY 05/25/17 [History] metFORMIN HCl [Metformin HCl] 1,000 mg PO BID 05/25/17 [History] Diclofenac Sodium [Voltaren] 50 mg PO TID #30 tab.ec 03/04/18 [Rx] Past Medical History - Past Health History Medical/Surgical History: Denies Medical/Surgical History Cardiovascular History: Reports: None Respiratory History: Reports: None Gastrointestinal History: Reports: None Genitourinary History: Reports: None Musculoskeletal History: Reports: None Neurological History: Reports: None Psychiatric History: Reports: None Endocrine/Metabolic History: Reports: Diabetes, Type II Hematologic History: Reports: None Immunologic History: Reports: None Oncologic (Cancer) History: Reports: None - Past Surgical History Head Surgeries/Procedures: Reports: None HEENT Surgical History: Reports: Other (See Below) Dermatological Surgical History: Reports: Other (See Below) Social & Family History - Family History Family Medical History: Noncontributory - Caffeine Use Caffeine Use: Reports: Coffee - Living Situation & Occupation Living situation: Reports: Occupation: Employed ED ROS GENERAL - Review of Systems Review Of Systems: ROS reveals no pertinent complaints other than HPI. ED EXAM, GENERAL - Physical Exam Exam: See Below Exam Limited By: No Limitations General Appearance: Alert, WD/WN, No Apparent Distress Eye Exam: Bilateral Eye: EOMI, Normal Inspection, PERRL Throat/Mouth: Normal Inspection, Normal Lips, Normal Oropharynx, Normal Voice, No Airway Compromise Head: Atraumatic, Normocephalic Neck: Normal Inspection, Supple, Full Range of Motion Respiratory/Chest: No Respiratory Distress, Lungs Clear, Normal Breath Sounds, No Accessory Muscle Use, Chest Non-Tender Cardiovascular: Normal Peripheral Pulses, Regular Rate, Rhythm, No Murmur GI/Abdominal: Normal Bowel Sounds, Soft, Non-Tender, No Organomegaly, No Distention, No Abnormal Bruit, No Mass Back Exam: Normal Inspection, Full Range of Motion. No: CVA Tenderness (L), CVA Tenderness (R) Extremities: Normal Inspection, Normal Range of Motion, Non-Tender, Normal Capillary Refill, No Pedal Edema Neurological: Alert, Oriented, Normal Cognition, No Motor/Sensory Deficits Psychiatric: Normal Affect, Normal Mood Skin Exam: Warm, Dry, Intact, Normal Color, No Rash EKG INTERPRETATION EKG Date: 06/17/18 Time: 11:17 Rhythm: NSR [place]: Normal P-Wave: Present QRS: Normal QT: Normal EKG Interpretation Comments: Diffuse ST elevation, concave, which could be consistent finding with pericarditis. No ischemic changes Course - Vital Signs Last Recorded V/S: Last Vital Signs Temp 36.2 C 06/17/18 11:21 Pulse 90 06/17/18 11:21 Resp 16 06/17/18 11:21 BP 117/81 06/17/18 12:13 Pulse Ox 99 06/17/18 11:21 - Orders/Labs/Meds Orders: Active Orders 24 hr Category Date Time Status EKG 12 Lead [EKG Documentation Completion] [RC] STAT Care 06/17/18 11:13 Active Chest 2V [CR] Stat Exams 06/17/18 11:31 Taken Labs: Laboratory Tests 06/17/18 06/17/18 06/17/18 Range/Units 11:45 12:10 12:10 WBC 7.02 (4.23-9.07) K/mm3 RBC 4.80 (4.63-6.08) M/mm3 Hgb 14.8 (13.7-17.5) gm/L Hct 42.4 (40.1-51.0) % MCV 88.3 (79.0-92.2) fl MCH 30.8 (25.7-32.2) pg MCHC 34.9 (32.2-35.5) g/dl RDW Std Deviation 41.4 (35.1-43.9) fL Plt Count 240 (163-337) K/mm3 MPV 9.9 (9.4-12.3) fl Neut % (Auto) 62.8 (34.0-67.9) % Lymph % (Auto) 25.8 (21.8-53.1) % [place] % (Auto) 9.1 (5.3-12.2) % Eos % (Auto) 1.7 (0.8-7.0) Baso % (Auto) 0.3 (0.1-1.2) % Neut # (Auto) 4.41 (1.78-5.38) K/mm3 Lymph # (Auto) 1.81 (1.32-3.57) K/mm3 [place] # (Auto) 0.64 (0.30-0.82) K/mm3 Eos # (Auto) 0.12 (0.04-0.54) K/mm3 Baso # (Auto) 0.02 (0.01-0.08) K/mm3 PT (9.5-12.1) SECONDS INR D-Dimer, Quantitative (0.19-0.50) mg/L Sodium 132 L (136-145) mEq/L Potassium 4.8 (3.5-5.1) mEq/L Chloride 97 L (98-107) mEq/L Carbon Dioxide 32 (21-32) mEq/L Anion Gap 7.8 (5-15) BUN 24 H (7-18) mg/dL Creatinine 1.5 H (0.7-1.3) mg/dL Est Cr Clr Drug Dosing 65.87 mL/min Estimated GFR (MDRD) 53 (>60) mL/min BUN/Creatinine Ratio 16.0 (14-18) Glucose 350 H (74-106) mg/dL Calcium 9.2 (8.5-10.1) mg/dL Magnesium 2.3 (1.8-2.4) mg/dl Total Bilirubin 0.3 (0.2-1.0) mg/dL AST 10 L (15-37) U/L ALT 24 (16-63) U/L Alkaline Phosphatase 98 (46-116) U/L CK-MB (CK-2) 0.9 (0-3.6) ng/ml Troponin I < 0.017 (0.00-0.056) ng/mL NT-Pro-B Natriuret Pep (0-125) pg/mL Total Protein 7.7 (6.4-8.2) g/dl Albumin 3.3 L (3.4-5.0) g/dl Globulin 4.4 gm/dL Albumin/Globulin Ratio 0.8 L (1-2) Urine Color Yellow (Yellow) Urine Appearance Clear (Clear) Urine pH 6.0 (5.0-8.0) Ur Specific [place] > or = 1.030 (1.005-1.030) Urine Protein 2+ H (Negative) Urine Glucose (UA) 3+ H (Negative) Urine Ketones Negative (Negative) Urine Occult Blood 1+ H (Negative) Urine Nitrite Negative (Negative) Urine Bilirubin Negative (Negative) Urine Urobilinogen 0.2 (0.2-1.0) Ur Leukocyte Esterase Negative (Negative) Urine RBC 0-5 (0-5) /hpf Urine WBC 0-5 (0-5) /hpf Ur Epithelial Cells Not seen (0-5) /hpf Urine Bacteria Rare (FEW) /hpf Urine Mucus Few (FEW) /hpf 06/17/18 06/17/18 Range/Units 12:10 12:10 WBC (4.23-9.07) K/mm3 RBC (4.63-6.08) M/mm3 Hgb (13.7-17.5) gm/L Hct (40.1-51.0) % MCV (79.0-92.2) fl MCH (25.7-32.2) pg MCHC (32.2-35.5) g/dl RDW Std Deviation (35.1-43.9) fL Plt Count (163-337) K/mm3 MPV (9.4-12.3) fl Neut % (Auto) (34.0-67.9) % Lymph % (Auto) (21.8-53.1) % [place] % (Auto) (5.3-12.2) % Eos % (Auto) (0.8-7.0) Baso % (Auto) (0.1-1.2) % Neut # (Auto) (1.78-5.38) K/mm3 Lymph # (Auto) (1.32-3.57) K/mm3 [place] # (Auto) (0.30-0.82) K/mm3 Eos # (Auto) (0.04-0.54) K/mm3 Baso # (Auto) (0.01-0.08) K/mm3 PT 10.0 (9.5-12.1) SECONDS INR < 0.93 D-Dimer, Quantitative 0.46 (0.19-0.50) mg/L Sodium (136-145) mEq/L Potassium (3.5-5.1) mEq/L Chloride (98-107) mEq/L Carbon Dioxide (21-32) mEq/L Anion Gap (5-15) BUN (7-18) mg/dL Creatinine (0.7-1.3) mg/dL Est Cr Clr Drug Dosing mL/min Estimated GFR (MDRD) (>60) mL/min BUN/Creatinine Ratio (14-18) Glucose (74-106) mg/dL Calcium (8.5-10.1) mg/dL Magnesium (1.8-2.4) mg/dl Total Bilirubin (0.2-1.0) mg/dL AST (15-37) U/L ALT (16-63) U/L Alkaline Phosphatase (46-116) U/L CK-MB (CK-2) (0-3.6) ng/ml Troponin I (0.00-0.056) ng/mL NT-Pro-B Natriuret Pep 32 (0-125) pg/mL Total Protein (6.4-8.2) g/dl Albumin (3.4-5.0) g/dl Globulin gm/dL Albumin/Globulin Ratio (1-2) Urine Color (Yellow) Urine Appearance (Clear) Urine pH (5.0-8.0) Ur Specific [place] (1.005-1.030) Urine Protein (Negative) Urine Glucose (UA) (Negative) Urine Ketones (Negative) Urine Occult Blood (Negative) Urine Nitrite (Negative) Urine Bilirubin (Negative) Urine Urobilinogen (0.2-1.0) Ur Leukocyte Esterase (Negative) Urine RBC (0-5) /hpf Urine WBC (0-5) /hpf Ur Epithelial Cells (0-5) /hpf Urine Bacteria (FEW) /hpf Urine Mucus (FEW) /hpf Meds: Medications Discontinued Medications Generic Name Dose Route Start Last Admin Trade Name Freq PRN Reason Stop Dose Admin Sodium Chloride 1,000 mls @ 999 mls/hr 06/17/18 11:32 06/17/18 12:12 Normal Saline IV 06/17/18 12:32 999 mls/hr ONETIME ONE Administration Nitroglycerin 0.4 mg 06/17/18 11:32 06/17/18 12:13 Nitrostat SL 06/17/18 11:33 0.4 mg ONETIME ONE Administration - Re-Assessments/Exams Free Text/Narrative Re-Assessment/Exam: 06/17/18 12:20 At this time patient be evaluated. Patient stated that after given 1 dose of sublingual nitroglycerin stat which completely alleviated his chest pain. Currently he is resting comfortably on a stretcher. Vital signs within normal limits. 06/17/18 13:10, at this time admit decision is made. I spoke with hospitalist Dr. Eddy, who accepted the patient and he is at bedside at the current moment to evaluate patient. He also recommended patient to be admitted in the hospital for further evaluation. Departure - Departure Time of Disposition: 13:30 Disposition: Admitted As Inpatient 67 Condition: Fair Clinical Impression: Chest pain - Discharge Information - My Orders Last 24 Hours: My Active Orders 06/17/18 11:31 Chest 2V [CR] Stat - Assessment/Plan Last 24 Hours: My Active Orders 06/17/18 11:31 Chest 2V [CR] Stat
--- NOTE | 2018-06-17 14:09 | CR ---
Chest: Two views of the chest were obtained. Comparison: Prior chest x-ray of 10/06/16. Heart size and mediastinum are normal. Lungs are clear. Bony structures are unremarkable. Impression: 1. Nothing acute is seen on two-view chest x-ray. Diagnostic code #1
[2018-06-17] MEDS ORDERED: LORazepam 2 MG/ML SDV IVPUSH PRN (14:23)
[2018-06-17] MEDS ORDERED: hydrALAZINE 20 MG/ML SDV IVPUSH PRN (14:23)
[2018-06-17] MEDS ORDERED: Metoprolol Tartrate 5 MG/5 ML SDV IVPUSH PRN (14:23)
[2018-06-17] MEDS ORDERED: Temazepam 15 MG Cap PO PRN (14:24)
[2018-06-17] MEDS ORDERED: Docusate Sodium 100 MG Cap PO PRN (14:24)
[2018-06-17] MEDS ORDERED: LORazepam 2 MG/ML SDV IV PRN (14:24)
[2018-06-17] MEDS ORDERED: Polyethylene Glycol 3350 Powder 17 GM Packet PO PRN (14:24)
[2018-06-17] MEDS ORDERED: Bisacodyl 5 MG Tab PO PRN (14:24)
[2018-06-17] MEDS ORDERED: Acetaminophen 325 MG Tab PO PRN (14:24)
[2018-06-17] MEDS ORDERED: Acetaminophen/HYDROcodone 325-5 MG Tab PO PRN (14:24)
[2018-06-17] MEDS ORDERED: HYDROmorphone 0.5 MG/0.5 ML Syringe IVPUSH PRN (14:24)
[2018-06-17] MEDS ORDERED: Albuterol/Ipratropium 3.0-0.5 MG/3 ML Neb Soln NEB PRN (14:24)
[2018-06-17] MEDS ORDERED: Ondansetron 4 MG/2 ML SDV IV PRN (14:24)
[2018-06-17] MEDS ORDERED: Promethazine 6.25 MG in Sodium Chloride 0.9% 50 ML IV PRN (14:24)
[2018-06-17] MEDS ORDERED: Ibuprofen 600 MG Tab PO ONE (15:00)
--- NOTE | 2018-06-17 15:00 | PCM.HP ---
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 (0.19-0.50) mg/L Sodium (136-145) mEq/L Potassium (3.5-5.1) mEq/L Chloride (98-107) mEq/L Carbon Dioxide (21-32) mEq/L Anion Gap (5-15) BUN (7-18) mg/dL Creatinine (0.7-1.3) mg/dL Est Cr Clr Drug Dosing mL/min Estimated GFR (MDRD) (>60) mL/min BUN/Creatinine Ratio (14-18) Glucose (74-106) mg/dL POC Glucose (70-105) mg/dL Calcium (8.5-10.1) mg/dL Magnesium (1.8-2.4) mg/dl Total Bilirubin (0.2-1.0) mg/dL AST (15-37) U/L ALT (16-63) U/L Alkaline Phosphatase (46-116) U/L CK-MB (CK-2) 0.6 (0-3.6) ng/ml Troponin I < 0.017 (0.00-0.056) ng/mL C-Reactive Protein (<1.0) mg/dL NT-Pro-B Natriuret Pep (0-125) pg/mL Total Protein (6.4-8.2) g/dl Albumin (3.4-5.0) g/dl Globulin gm/dL Albumin/Globulin Ratio (1-2) Urine Color (Yellow) Urine Appearance (Clear) Urine pH (5.0-8.0) Ur Specific [place] (1.005-1.030) Urine Protein (Negative) Urine Glucose (UA) (Negative) Urine Ketones (Negative) Urine Occult Blood (Negative) Urine Nitrite (Negative) Urine Bilirubin (Negative) Urine Urobilinogen (0.2-1.0) Ur Leukocyte Esterase (Negative) Urine RBC (0-5) /hpf Urine WBC (0-5) /hpf Ur Epithelial Cells (0-5) /hpf Urine Bacteria (FEW) /hpf Urine Mucus (FEW) /hpf Ur Random Creatinine (30.0-125.0) mg/dL Ur Random Microalbumin (1.3-20.0) mg/L Microalb/Creat Ratio (0-30) mg/g Urine Opiates Screen (NEGATIVE) Ur Buprenorphine Scrn (NEGATIVE) Ur Oxycodone Screen (NEGATIVE) Urine Methadone Screen (NEGATIVE) Ur Propoxyphene Screen (NEGATIVE) Ur Barbiturates Screen (NEGATIVE) Ur Tricyclics Screen (NEGATIVE) Ur Phencyclidine Scrn (NEGATIVE) Ur Amphetamine Screen (NEGATIVE) U Methamphetamines Scrn (NEGATIVE) U Benzodiazepines Scrn (NEGATIVE) U Cocaine Metab Screen (NEGATIVE) U Marijuana (THC) Screen (NEGATIVE) Result Diagrams: 06/17/18 12:10 06/17/18 12:10 Orders Last 24hrs: Active Orders 24 hr Category Date Time Status Admission Status [Patient Status] [ADT] Routine ADT 06/17/18 14:04 Active Accu Check [Blood Glucose Check, Bedside] [RC] Care 06/17/18 14:40 Active QIDACANDBED EKG 12 Lead [EKG Documentation Completion] [RC] AM Care 06/17/18 20:31 Active Height and Weight [RC] 04 Care 06/17/18 14:24 Active Intake and Output [RC] 04,16 Care 06/17/18 14:24 Active VTE/DVT Education [RC] 09,21 Care 06/17/18 14:24 Active Vital Signs [RC] Q4HR Care 06/17/18 14:24 Active Consistent Carbohydrate Diet [DIET] Diet 06/17/18 Lunch Active Echo Comp wo Cont [US] Routine Exams 06/20/18 08:00 Ordered BASIC METABOLIC PANEL,BMP [CHEM] AM Lab 06/18/18 05:11 Ordered BASIC METABOLIC PANEL,BMP [CHEM] AM Lab 06/19/18 05:11 Ordered BASIC METABOLIC PANEL,BMP [CHEM] AM Lab 06/20/18 05:11 Ordered C-REACTIVE PROTEIN [CHEM] AM Lab 06/18/18 05:11 Ordered CBC WITH AUTO DIFF [HEME] AM Lab 06/18/18 05:11 Ordered CBC WITH AUTO DIFF [HEME] AM Lab 06/19/18 05:11 Ordered CBC WITH AUTO DIFF [HEME] AM Lab 06/20/18 05:11 Ordered CKMB [CHEM] AM Lab 06/18/18 05:11 Ordered CKMB [CHEM] Q6H Lab 06/18/18 02:24 Ordered CKMB [CHEM] Q6H Lab 06/18/18 08:24 Ordered LIPID PANEL [CHEM] AM Lab 06/18/18 05:11 Ordered MAGNESIUM [CHEM] AM Lab 06/18/18 05:11 Ordered MAGNESIUM [CHEM] AM Lab 06/19/18 05:11 Ordered MAGNESIUM [CHEM] AM Lab 06/20/18 05:11 Ordered MAGNESIUM [CHEM] AM Lab 06/21/18 05:11 Ordered SEDIMENTATION RATE AUTO [HEME] AM Lab 06/18/18 05:11 Ordered TROPONIN I [CHEM] AM Lab 06/18/18 05:11 Ordered TROPONIN I [CHEM] Q6H Lab 06/18/18 02:20 Ordered TROPONIN I [CHEM] Q6H Lab 06/18/18 08:20 Ordered Acetaminophen [Tylenol] Med 06/17/18 14:24 Active 650 mg PO Q4H PRN Acetaminophen/HYDROcodone [[place] 325-5 MG] Med 06/17/18 14:24 Active 1 tab PO Q4H PRN Albuterol/Ipratropium [DuoNeb 3.0-0.5 MG/3 ML] Med 06/17/18 14:24 Active 3 ml NEB Q4H PRN Bisacodyl [Dulcolax] Med 06/17/18 14:24 Active 5 mg PO DAILY PRN Canagliflozin [Invokana] Med 06/18/18 09:00 Pending 500 mg PO DAILY Colchicine [Colcrys] Med 06/17/18 21:00 Active 0.6 mg PO BID Docusate Sodium [Colace] Med 06/17/18 14:24 Active 100 mg PO BID PRN Docusate Sodium/Sennosides [Senna Plus] Med 06/17/18 14:24 Active 1 tab PO BID PRN Enoxaparin [Lovenox] Med 06/18/18 09:00 Active 40 mg SUBCUT DAILY HYDROmorphone [Dilaudid] Med 06/17/18 14:24 Active 0.25 mg IVPUSH Q2H PRN Ibuprofen [Motrin] Med 06/17/18 21:00 Active 600 mg PO TID@0700,1400,2100 Insulin Lispro [HumaLOG] Med 06/17/18 17:00 Active See Protocol SUBCUT QIDACANDBED LORazepam [Ativan] Med 06/17/18 14:24 Active 1 mg IV Q6H PRN LORazepam [Ativan] Med 06/17/18 14:23 Active 2 mg IVPUSH Q4H PRN Magnesium Rep Pharmacy to Dose [Pharmacy to Dose - Med 06/17/18 14:30 Active Magnesium Replacement] 1 dose .XX ASDIRECTED Metoprolol Tartrate [Lopressor] Med 06/17/18 14:23 Active 5 mg IVPUSH Q4H PRN Nicotine [Habitrol] Med 06/17/18 15:30 Active 21 mg TRDERM DAILY Ondansetron [Zofran] Med 06/17/18 14:24 Active 4 mg IV Q6H PRN Polyethylene Glycol 3350 [MiraLAX] Med 06/17/18 14:24 Active 17 gm PO DAILY PRN Potassium Rep Pharmacy to Dose [Pharmacy to Dose - Med 06/17/18 14:30 Active Potassium Replacement] 1 dose .XX ASDIRECTED Promethazine [Phenergan] 6.25 mg Med 06/17/18 14:24 Active Sodium Chloride 0.9% [Normal Saline] 50 ml IV Q6H Remove Patch Med 06/18/18 09:00 Active 0 ea TRDERM DAILY Sodium Chloride 0.9% [Normal Saline] 1,000 ml Med 06/17/18 14:45 Active IV ASDIRECTED Temazepam [Restoril] Med 06/17/18 14:24 Active 15 mg PO BEDTIME PRN hydrALAZINE [Apresoline] Med 06/17/18 14:23 Active 20 mg IVPUSH Q4H PRN metFORMIN [Glucophage] Med 06/17/18 17:00 Active 1,000 mg PO BIDMEALS Resuscitation Status Routine Resus Stat 06/17/18 14:24 Ordered EKG 12 Lead [EK] Routine Ther 06/17/18 20:00 Ordered Medication Orders Acetaminophen (Tylenol) 650 mg PO Q4H PRN PRN Reason: Pain (Mild 1-3)/fever Hydrocodone Bitart/Acetaminophen ([place] 325-5 Mg) 1 tab PO Q4H PRN PRN Reason: Pain (moderate 4-6) Albuterol/Ipratropium (Duoneb 3.0-0.5 Mg/3 Ml) 3 ml NEB Q4H PRN PRN Reason: Shortness Of Breath/wheezing Bisacodyl (Dulcolax) 5 mg PO DAILY PRN PRN Reason: Constipation Colchicine (Colcrys) 0.6 mg PO BID [facility] Last Admin: 06/17/18 21:16 Dose: 0.6 mg Docusate Sodium (Colace) 100 mg PO BID PRN PRN Reason: Constipation Enoxaparin Sodium (Lovenox) 40 mg SUBCUT DAILY [facility] Hydralazine HCl (Apresoline) 20 mg IVPUSH Q4H PRN PRN Reason: Hypertension Hydromorphone HCl (Dilaudid) 0.25 mg IVPUSH Q2H PRN PRN Reason: Pain (severe 7-10) Promethazine HCl 6.25 mg/ (Sodium Chloride) 50.25 mls @ 100 mls/hr IV Q6H PRN PRN Reason: Nausea/Vomiting Sodium Chloride (Normal Saline) 1,000 mls @ 125 mls/hr IV ASDIRECTED [facility] Last Admin: 06/17/18 15:51 Dose: 125 mls/hr Ibuprofen (Motrin) 600 mg PO TID@0700,1400,2100 [facility] Last Admin: 06/17/18 21:16 Dose: 600 mg Insulin Human Lispro (Humalog) 0 unit SUBCUT QIDACANDBED [facility]; Protocol Last Admin: 06/17/18 21:23 Dose: 6 units Admin: 06/17/18 17:09 Dose: 8 units Lorazepam (Ativan) 2 mg IVPUSH Q4H PRN PRN Reason: Seizures Lorazepam (Ativan) 1 mg IV Q6H PRN PRN Reason: Anxiety Magnesium Sulfate (Pharmacy To Dose - Magnesium Replacement) 1 dose .XX ASDIRECTED [facility] Metformin HCl (Glucophage) 1,000 mg PO BIDMEALS [facility] Last Admin: 06/17/18 17:09 Dose: 1,000 mg Metoprolol Tartrate (Lopressor) 5 mg IVPUSH Q4H PRN PRN Reason: Tachycardia Miscellaneous Information (Remove Patch) 0 ea TRDERM DAILY [facility] Nicotine (Habitrol) 21 mg TRDERM DAILY [facility] Last Admin: 06/17/18 15:52 Dose: 21 mg Non-Formulary Medication (Canagliflozin [Invokana]) 500 mg PO DAILY [facility] Ondansetron HCl (Zofran) 4 mg IV Q6H PRN PRN Reason: Nausea/Vomiting Polyethylene Glycol (Miralax) 17 gm PO DAILY PRN PRN Reason: Constipation Potassium Chloride (Pharmacy To Dose - Potassium Replacement) 1 dose .XX ASDIRECTED [facility] Senna/Docusate Sodium (Senna Plus) 1 tab PO BID PRN PRN Reason: Constipation Temazepam (Restoril) 15 mg PO BEDTIME PRN PRN Reason: Sleep Assessment/Plan Comment:: The patient was seen and examined at bedside in concert with the medical student. The admission assessment and plans were discussed and agreed upon with me. Briefly, patient is a 37 yo male with past medical hx/o DM and HTN who comes in for evaluation of chest pain at rest associated with shortness of breath, dizziness and headaches. He drinks alcohol and admits to using Marijuana and Methamphetamines. He used to smoke cigarettes, quit a month ago but restarted smoking again due to stress. He had a similar episode of it about less than a year ago with negative cardiac stress tests. His ekg x [address] segment elevation. His CRP is normal but ESR is elevated. His CE remains wnl. His admission glucose level is 300 with an A1C level of 10. He is on invokana and metformin but has not been compliant. He has not been able to afford his medicines due to lack of insurance but he just recently got a new job. Patient is aware he may have to stay here longer than expected due to limited of resources availability going into the weekends. He understood. Patient will be treated primarily with NSAIDs and Colchicine for his acute pericarditis.
[2018-06-17] MEDS: Sodium Chloride 0.9% 1,000 ML IV SCH (15:51)
[2018-06-17] MEDS: Nicotine 21 MG/24 Hr Patch TRDERM SCH (15:52)
[2018-06-17] MEDS: metFORMIN 500 MG Tab PO SCH (17:09)
[2018-06-17] MEDS: Insulin Lispro 100 Unit/ML 3 ML KwikPen SUBCUT SCH ×2 (17:09→21:23)
[2018-06-17] MEDS: Ibuprofen 600 MG Tab PO SCH (21:16)
[2018-06-17] MEDS: Colchicine 0.6 MG Tab PO SCH (21:16)
[2018-06-18] MEDS: Sodium Chloride 0.9% 1,000 ML IV SCH ×3 (00:25→17:58)
[2018-06-18] MEDS: metFORMIN 500 MG Tab PO SCH ×2 (06:27→17:58)
[2018-06-18] MEDS: Ibuprofen 600 MG Tab PO SCH ×3 (06:28→20:49)
--- NOTE | 2018-06-18 07:39 | PCM.PN ---
- General Info Date of Service: 06/18/18 Admission Dx/Problem (Free Text): Admission Diagnosis/Problem Admission Diagnosis/Problem Chest pain Subjective Update: Follow Up Functional Status: Reports: Pain Controlled, Tolerating Diet, Ambulating, Urinating. Denies: New Symptoms - Review of Systems General: Denies: Fever, Weakness, Fatigue, Malaise HEENT: Reports: No Symptoms Pulmonary: Reports: Cough (chronically but only in AM and PM). Denies: Shortness of Breath, Pleuritic Chest Pain Cardiovascular: Denies: Chest Pain, Palpitations, Dyspnea on Exertion, Lightheadedness Gastrointestinal: Reports: Abdominal Pain (intermittent abdominal pain). Denies : Nausea, Vomiting Genitourinary: Denies: Dysuria, Frequency, Burning, Pain, Urgency, Hematuria, Flank Pain Musculoskeletal: Reports: No Symptoms Skin: Denies: Cyanosis, Jaundice, Diaphoresis, Bruising, Pruritis, Rash Neurological: Denies: Confusion, Difficulty Walking, Weakness, Gait Disturbance Psychiatric: Denies: Confusion, Depression, Mood Lability, Anxiety, Agitation, Hallucinations Systems Review Comment:: No significant overnight or acute issues. He rested well. He has no complaints. His glucose level is much better. His Lipid panel is abnormal. - Patient Data Vitals - Most Recent: Last Vital Signs Temp 37.1 C 06/18/18 00:32 Pulse 91 06/18/18 00:32 Resp 18 06/18/18 00:32 BP 134/91 H 06/18/18 00:32 Pulse Ox 97 06/18/18 00:32 Weight - Most Recent: 70.307 kg I&O - Last 24 Hours: Intake & Output 06/17/18 06/18/18 06/18/18 22:59 06:59 14:59 Intake Total 120 Balance 120 Lab Results Last 24 Hours: Laboratory Results - last 24 hr 06/17/18 06/17/18 06/17/18 Range/Units 11:45 11:45 11:45 WBC (4.23-9.07) K/mm3 RBC (4.63-6.08) M/mm3 Hgb (13.7-17.5) gm/L Hct (40.1-51.0) % MCV (79.0-92.2) fl MCH (25.7-32.2) pg MCHC (32.2-35.5) g/dl RDW Std Deviation (35.1-43.9) fL Plt Count (163-337) K/mm3 MPV (9.4-12.3) fl Neut % (Auto) (34.0-67.9) % Lymph % (Auto) (21.8-53.1) % [place] % (Auto) (5.3-12.2) % Eos % (Auto) (0.8-7.0) Baso % (Auto) (0.1-1.2) % Neut # (Auto) (1.78-5.38) K/mm3 Lymph # (Auto) (1.32-3.57) K/mm3 [place] # (Auto) (0.30-0.82) K/mm3 Eos # (Auto) (0.04-0.54) K/mm3 Baso # (Auto) (0.01-0.08) K/mm3 ESR (0-15) mm/hr PT (9.5-12.1) SECONDS INR D-Dimer, Quantitative (0.19-0.50) mg/L Sodium (136-145) mEq/L Potassium (3.5-5.1) mEq/L Chloride (98-107) mEq/L Carbon Dioxide (21-32) mEq/L Anion Gap (5-15) BUN (7-18) mg/dL Creatinine (0.7-1.3) mg/dL Est Cr Clr Drug Dosing mL/min Estimated GFR (MDRD) (>60) mL/min BUN/Creatinine Ratio (14-18) Glucose (74-106) mg/dL POC Glucose (70-105) mg/dL Calcium (8.5-10.1) mg/dL Magnesium (1.8-2.4) mg/dl Total Bilirubin (0.2-1.0) mg/dL AST (15-37) U/L ALT (16-63) U/L Alkaline Phosphatase (46-116) U/L CK-MB (CK-2) (0-3.6) ng/ml Troponin I (0.00-0.056) ng/mL C-Reactive Protein (<1.0) mg/dL NT-Pro-B Natriuret Pep (0-125) pg/mL Total Protein (6.4-8.2) g/dl Albumin (3.4-5.0) g/dl Globulin gm/dL Albumin/Globulin Ratio (1-2) Triglycerides (<150) mg/dL Cholesterol (<200) mg/dL LDL Cholesterol Direct (<100) mg/dL HDL Cholesterol (40-59) mg/dL Urine Color Yellow (Yellow) Urine Appearance Clear (Clear) Urine pH 6.0 (5.0-8.0) Ur Specific [place] > or = 1.030 (1.005-1.030) Urine Protein 2+ H (Negative) Urine Glucose (UA) 3+ H (Negative) Urine Ketones Negative (Negative) Urine Occult Blood 1+ H (Negative) Urine Nitrite Negative (Negative) Urine Bilirubin Negative (Negative) Urine Urobilinogen 0.2 (0.2-1.0) Ur Leukocyte Esterase Negative (Negative) Urine RBC 0-5 (0-5) /hpf Urine WBC 0-5 (0-5) /hpf Ur Epithelial Cells Not seen (0-5) /hpf Urine Bacteria Rare (FEW) /hpf Urine Mucus Few (FEW) /hpf Ur Random Creatinine 149.1 H (30.0-125.0) mg/dL Ur Random Microalbumin 1316.7 H (1.3-20.0) mg/L Microalb/Creat Ratio 883.0 H (0-30) mg/g Urine Opiates Screen Negative (NEGATIVE) Ur Buprenorphine Scrn Negative (NEGATIVE) Ur Oxycodone Screen Negative (NEGATIVE) Urine Methadone Screen Negative (NEGATIVE) Ur Propoxyphene Screen Negative (NEGATIVE) Ur Barbiturates Screen Negative (NEGATIVE) Ur Tricyclics Screen Negative (NEGATIVE) Ur Phencyclidine Scrn Negative (NEGATIVE) Ur Amphetamine Screen Presumptive positive H (NEGATIVE) U Methamphetamines Scrn Presumptive positive H (NEGATIVE) U Benzodiazepines Scrn Negative (NEGATIVE) U Cocaine Metab Screen Negative (NEGATIVE) U Marijuana (THC) Screen Presumptive positive H (NEGATIVE) 06/17/18 06/17/18 06/17/18 Range/Units 12:10 12:10 12:10 WBC 7.02 (4.23-9.07) K/mm3 RBC 4.80 (4.63-6.08) M/mm3 Hgb 14.8 (13.7-17.5) gm/L Hct 42.4 (40.1-51.0) % MCV 88.3 (79.0-92.2) fl MCH 30.8 (25.7-32.2) pg MCHC 34.9 (32.2-35.5) g/dl RDW Std Deviation 41.4 (35.1-43.9) fL Plt Count 240 (163-337) K/mm3 MPV 9.9 (9.4-12.3) fl Neut % (Auto) 62.8 (34.0-67.9) % Lymph % (Auto) 25.8 (21.8-53.1) % [place] % (Auto) 9.1 (5.3-12.2) % Eos % (Auto) 1.7 (0.8-7.0) Baso % (Auto) 0.3 (0.1-1.2) % Neut # (Auto) 4.41 (1.78-5.38) K/mm3 Lymph # (Auto) 1.81 (1.32-3.57) K/mm3 [place] # (Auto) 0.64 (0.30-0.82) K/mm3 Eos # (Auto) 0.12 (0.04-0.54) K/mm3 Baso # (Auto) 0.02 (0.01-0.08) K/mm3 ESR (0-15) mm/hr PT (9.5-12.1) SECONDS INR D-Dimer, Quantitative (0.19-0.50) mg/L Sodium 132 L (136-145) mEq/L Potassium 4.8 (3.5-5.1) mEq/L Chloride 97 L (98-107) mEq/L Carbon Dioxide 32 (21-32) mEq/L Anion Gap 7.8 (5-15) BUN 24 H (7-18) mg/dL Creatinine 1.5 H (0.7-1.3) mg/dL Est Cr Clr Drug Dosing 65.87 mL/min Estimated GFR (MDRD) 53 (>60) mL/min BUN/Creatinine Ratio 16.0 (14-18) Glucose 350 H (74-106) mg/dL POC Glucose (70-105) mg/dL Calcium 9.2 (8.5-10.1) mg/dL Magnesium 2.3 (1.8-2.4) mg/dl Total Bilirubin 0.3 (0.2-1.0) mg/dL AST 10 L (15-37) U/L ALT 24 (16-63) U/L Alkaline Phosphatase 98 (46-116) U/L CK-MB (CK-2) 0.9 (0-3.6) ng/ml Troponin I < 0.017 (0.00-0.056) ng/mL C-Reactive Protein (<1.0) mg/dL NT-Pro-B Natriuret Pep 32 (0-125) pg/mL Total Protein 7.7 (6.4-8.2) g/dl Albumin 3.3 L (3.4-5.0) g/dl Globulin 4.4 gm/dL Albumin/Globulin Ratio 0.8 L (1-2) Triglycerides (<150) mg/dL Cholesterol (<200) mg/dL LDL Cholesterol Direct (<100) mg/dL HDL Cholesterol (40-59) mg/dL Urine Color (Yellow) Urine Appearance (Clear) Urine pH (5.0-8.0) Ur Specific [place] (1.005-1.030) Urine Protein (Negative) Urine Glucose (UA) (Negative) Urine Ketones (Negative) Urine Occult Blood (Negative) Urine Nitrite (Negative) Urine Bilirubin (Negative) Urine Urobilinogen (0.2-1.0) Ur Leukocyte Esterase (Negative) Urine RBC (0-5) /hpf Urine WBC (0-5) /hpf Ur Epithelial Cells (0-5) /hpf Urine Bacteria (FEW) /hpf Urine Mucus (FEW) /hpf Ur Random Creatinine (30.0-125.0) mg/dL Ur Random Microalbumin (1.3-20.0) mg/L Microalb/Creat Ratio (0-30) mg/g Urine Opiates Screen (NEGATIVE) Ur Buprenorphine Scrn (NEGATIVE) Ur Oxycodone Screen (NEGATIVE) Urine Methadone Screen (NEGATIVE) Ur Propoxyphene Screen (NEGATIVE) Ur Barbiturates Screen (NEGATIVE) Ur Tricyclics Screen (NEGATIVE) Ur Phencyclidine Scrn (NEGATIVE) Ur Amphetamine Screen (NEGATIVE) U Methamphetamines Scrn (NEGATIVE) U Benzodiazepines Scrn (NEGATIVE) U Cocaine Metab Screen (NEGATIVE) U Marijuana (THC) Screen (NEGATIVE) 06/17/18 06/17/18 06/17/18 Range/Units 12:10 12:10 14:31 WBC (4.23-9.07) K/mm3 RBC (4.63-6.08) M/mm3 Hgb (13.7-17.5) gm/L Hct (40.1-51.0) % MCV (79.0-92.2) fl MCH (25.7-32.2) pg MCHC (32.2-35.5) g/dl RDW Std Deviation (35.1-43.9) fL Plt Count (163-337) K/mm3 MPV (9.4-12.3) fl Neut % (Auto) (34.0-67.9) % Lymph % (Auto) (21.8-53.1) % [place] % (Auto) (5.3-12.2) % Eos % (Auto) (0.8-7.0) Baso % (Auto) (0.1-1.2) % Neut # (Auto) (1.78-5.38) K/mm3 Lymph # (Auto) (1.32-3.57) K/mm3 [place] # (Auto) (0.30-0.82) K/mm3 Eos # (Auto) (0.04-0.54) K/mm3 Baso # (Auto) (0.01-0.08) K/mm3 ESR 27 H (0-15) mm/hr PT 10.0 (9.5-12.1) SECONDS INR < 0.93 D-Dimer, Quantitative 0.46 (0.19-0.50) mg/L Sodium (136-145) mEq/L Potassium (3.5-5.1) mEq/L Chloride (98-107) mEq/L Carbon Dioxide (21-32) mEq/L Anion Gap (5-15) BUN (7-18) mg/dL Creatinine (0.7-1.3) mg/dL Est Cr Clr Drug Dosing mL/min Estimated GFR (MDRD) (>60) mL/min BUN/Creatinine Ratio (14-18) Glucose (74-106) mg/dL POC Glucose (70-105) mg/dL Calcium (8.5-10.1) mg/dL Magnesium (1.8-2.4) mg/dl Total Bilirubin (0.2-1.0) mg/dL AST (15-37) U/L ALT (16-63) U/L Alkaline Phosphatase (46-116) U/L CK-MB (CK-2) (0-3.6) ng/ml Troponin I < 0.017 (0.00-0.056) ng/mL C-Reactive Protein (<1.0) mg/dL NT-Pro-B Natriuret Pep (0-125) pg/mL Total Protein (6.4-8.2) g/dl Albumin (3.4-5.0) g/dl Globulin gm/dL Albumin/Globulin Ratio (1-2) Triglycerides (<150) mg/dL Cholesterol (<200) mg/dL LDL Cholesterol Direct (<100) mg/dL HDL Cholesterol (40-59) mg/dL Urine Color (Yellow) Urine Appearance (Clear) Urine pH (5.0-8.0) Ur Specific [place] (1.005-1.030) Urine Protein (Negative) Urine Glucose (UA) (Negative) Urine Ketones (Negative) Urine Occult Blood (Negative) Urine Nitrite (Negative) Urine Bilirubin (Negative) Urine Urobilinogen (0.2-1.0) Ur Leukocyte Esterase (Negative) Urine RBC (0-5) /hpf Urine WBC (0-5) /hpf Ur Epithelial Cells (0-5) /hpf Urine Bacteria (FEW) /hpf Urine Mucus (FEW) /hpf Ur Random Creatinine (30.0-125.0) mg/dL Ur Random Microalbumin (1.3-20.0) mg/L Microalb/Creat Ratio (0-30) mg/g Urine Opiates Screen (NEGATIVE) Ur Buprenorphine Scrn (NEGATIVE) Ur Oxycodone Screen (NEGATIVE) Urine Methadone Screen (NEGATIVE) Ur Propoxyphene Screen (NEGATIVE) Ur Barbiturates Screen (NEGATIVE) Ur Tricyclics Screen (NEGATIVE) Ur Phencyclidine Scrn (NEGATIVE) Ur Amphetamine Screen (NEGATIVE) U Methamphetamines Scrn (NEGATIVE) U Benzodiazepines Scrn (NEGATIVE) U Cocaine Metab Screen (NEGATIVE) U Marijuana (THC) Screen (NEGATIVE) 06/17/18 06/17/18 06/17/18 Range/Units 14:31 14:31 17:02 WBC (4.23-9.07) K/mm3 RBC (4.63-6.08) M/mm3 Hgb (13.7-17.5) gm/L Hct (40.1-51.0) % MCV (79.0-92.2) fl MCH (25.7-32.2) pg MCHC (32.2-35.5) g/dl RDW Std Deviation (35.1-43.9) fL Plt Count (163-337) K/mm3 MPV (9.4-12.3) fl Neut % (Auto) (34.0-67.9) % Lymph % (Auto) (21.8-53.1) % [place] % (Auto) (5.3-12.2) % Eos % (Auto) (0.8-7.0) Baso % (Auto) (0.1-1.2) % Neut # (Auto) (1.78-5.38) K/mm3 Lymph # (Auto) (1.32-3.57) K/mm3 [place] # (Auto) (0.30-0.82) K/mm3 Eos # (Auto) (0.04-0.54) K/mm3 Baso # (Auto) (0.01-0.08) K/mm3 ESR (0-15) mm/hr PT (9.5-12.1) SECONDS INR D-Dimer, Quantitative (0.19-0.50) mg/L Sodium (136-145) mEq/L Potassium (3.5-5.1) mEq/L Chloride (98-107) mEq/L Carbon Dioxide (21-32) mEq/L Anion Gap (5-15) BUN (7-18) mg/dL Creatinine (0.7-1.3) mg/dL Est Cr Clr Drug Dosing mL/min Estimated GFR (MDRD) (>60) mL/min BUN/Creatinine Ratio (14-18) Glucose (74-106) mg/dL POC Glucose 310 H (70-105) mg/dL Calcium (8.5-10.1) mg/dL Magnesium (1.8-2.4) mg/dl Total Bilirubin (0.2-1.0) mg/dL AST (15-37) U/L ALT (16-63) U/L Alkaline Phosphatase (46-116) U/L CK-MB (CK-2) 0.8 (0-3.6) ng/ml Troponin I (0.00-0.056) ng/mL C-Reactive Protein 0.5 (<1.0) mg/dL NT-Pro-B Natriuret Pep (0-125) pg/mL Total Protein (6.4-8.2) g/dl Albumin (3.4-5.0) g/dl Globulin gm/dL Albumin/Globulin Ratio (1-2) Triglycerides (<150) mg/dL Cholesterol (<200) mg/dL LDL Cholesterol Direct (<100) mg/dL HDL Cholesterol (40-59) mg/dL Urine Color (Yellow) Urine Appearance (Clear) Urine pH (5.0-8.0) Ur Specific [place] (1.005-1.030) Urine Protein (Negative) Urine Glucose (UA) (Negative) Urine Ketones (Negative) Urine Occult Blood (Negative) Urine Nitrite (Negative) Urine Bilirubin (Negative) Urine Urobilinogen (0.2-1.0) Ur Leukocyte Esterase (Negative) Urine RBC (0-5) /hpf Urine WBC (0-5) /hpf Ur Epithelial Cells (0-5) /hpf Urine Bacteria (FEW) /hpf Urine Mucus (FEW) /hpf Ur Random Creatinine (30.0-125.0) mg/dL Ur Random Microalbumin (1.3-20.0) mg/L Microalb/Creat Ratio (0-30) mg/g Urine Opiates Screen (NEGATIVE) Ur Buprenorphine Scrn (NEGATIVE) Ur Oxycodone Screen (NEGATIVE) Urine Methadone Screen (NEGATIVE) Ur Propoxyphene Screen (NEGATIVE) Ur Barbiturates Screen (NEGATIVE) Ur Tricyclics Screen (NEGATIVE) Ur Phencyclidine Scrn (NEGATIVE) Ur Amphetamine Screen (NEGATIVE) U Methamphetamines Scrn (NEGATIVE) U Benzodiazepines Scrn (NEGATIVE) U Cocaine Metab Screen (NEGATIVE) U Marijuana (THC) Screen (NEGATIVE) 06/17/18 06/17/18 06/18/18 Range/Units 20:19 20:51 02:23 WBC (4.23-9.07) K/mm3 RBC (4.63-6.08) M/mm3 Hgb (13.7-17.5) gm/L Hct (40.1-51.0) % MCV (79.0-92.2) fl MCH (25.7-32.2) pg MCHC (32.2-35.5) g/dl RDW Std Deviation (35.1-43.9) fL Plt Count (163-337) K/mm3 MPV (9.4-12.3) fl Neut % (Auto) (34.0-67.9) % Lymph % (Auto) (21.8-53.1) % [place] % (Auto) (5.3-12.2) % Eos % (Auto) (0.8-7.0) Baso % (Auto) (0.1-1.2) % Neut # (Auto) (1.78-5.38) K/mm3 Lymph # (Auto) (1.32-3.57) K/mm3 [place] # (Auto) (0.30-0.82) K/mm3 Eos # (Auto) (0.04-0.54) K/mm3 Baso # (Auto) (0.01-0.08) K/mm3 ESR (0-15) mm/hr PT (9.5-12.1) SECONDS INR D-Dimer, Quantitative (0.19-0.50) mg/L Sodium (136-145) mEq/L Potassium (3.5-5.1) mEq/L Chloride (98-107) mEq/L Carbon Dioxide (21-32) mEq/L Anion Gap (5-15) BUN (7-18) mg/dL Creatinine (0.7-1.3) mg/dL Est Cr Clr Drug Dosing mL/min Estimated GFR (MDRD) (>60) mL/min BUN/Creatinine Ratio (14-18) Glucose (74-106) mg/dL POC Glucose 253 H (70-105) mg/dL Calcium (8.5-10.1) mg/dL Magnesium (1.8-2.4) mg/dl Total Bilirubin (0.2-1.0) mg/dL AST (15-37) U/L ALT (16-63) U/L Alkaline Phosphatase (46-116) U/L CK-MB (CK-2) 0.6 0.5 (0-3.6) ng/ml Troponin I < 0.017 < 0.017 (0.00-0.056) ng/mL C-Reactive Protein (<1.0) mg/dL NT-Pro-B Natriuret Pep (0-125) pg/mL Total Protein (6.4-8.2) g/dl Albumin (3.4-5.0) g/dl Globulin gm/dL Albumin/Globulin Ratio (1-2) Triglycerides (<150) mg/dL Cholesterol (<200) mg/dL LDL Cholesterol Direct (<100) mg/dL HDL Cholesterol (40-59) mg/dL Urine Color (Yellow) Urine Appearance (Clear) Urine pH (5.0-8.0) Ur Specific [place] (1.005-1.030) Urine Protein (Negative) Urine Glucose (UA) (Negative) Urine Ketones (Negative) Urine Occult Blood (Negative) Urine Nitrite (Negative) Urine Bilirubin (Negative) Urine Urobilinogen (0.2-1.0) Ur Leukocyte Esterase (Negative) Urine RBC (0-5) /hpf Urine WBC (0-5) /hpf Ur Epithelial Cells (0-5) /hpf Urine Bacteria (FEW) /hpf Urine Mucus (FEW) /hpf Ur Random Creatinine (30.0-125.0) mg/dL Ur Random Microalbumin (1.3-20.0) mg/L Microalb/Creat Ratio (0-30) mg/g Urine Opiates Screen (NEGATIVE) Ur Buprenorphine Scrn (NEGATIVE) Ur Oxycodone Screen (NEGATIVE) Urine Methadone Screen (NEGATIVE) Ur Propoxyphene Screen (NEGATIVE) Ur Barbiturates Screen (NEGATIVE) Ur Tricyclics Screen (NEGATIVE) Ur Phencyclidine Scrn (NEGATIVE) Ur Amphetamine Screen (NEGATIVE) U Methamphetamines Scrn (NEGATIVE) U Benzodiazepines Scrn (NEGATIVE) U Cocaine Metab Screen (NEGATIVE) U Marijuana (THC) Screen (NEGATIVE) 06/18/18 06/18/18 06/18/18 Range/Units 05:58 05:58 05:58 WBC 6.97 (4.23-9.07) K/mm3 RBC 4.19 L (4.63-6.08) M/mm3 Hgb 13.0 L (13.7-17.5) gm/L Hct 37.4 L (40.1-51.0) % MCV 89.3 (79.0-92.2) fl MCH 31.0 (25.7-32.2) pg MCHC 34.8 (32.2-35.5) g/dl RDW Std Deviation 41.1 (35.1-43.9) fL Plt Count 216 (163-337) K/mm3 MPV 10.0 (9.4-12.3) fl Neut % (Auto) 52.7 (34.0-67.9) % Lymph % (Auto) 36.3 (21.8-53.1) % [place] % (Auto) 7.9 (5.3-12.2) % Eos % (Auto) 2.4 (0.8-7.0) Baso % (Auto) 0.4 (0.1-1.2) % Neut # (Auto) 3.67 (1.78-5.38) K/mm3 Lymph # (Auto) 2.53 (1.32-3.57) K/mm3 [place] # (Auto) 0.55 (0.30-0.82) K/mm3 Eos # (Auto) 0.17 (0.04-0.54) K/mm3 Baso # (Auto) 0.03 (0.01-0.08) K/mm3 ESR 23 H (0-15) mm/hr PT (9.5-12.1) SECONDS INR D-Dimer, Quantitative (0.19-0.50) mg/L Sodium 135 L (136-145) mEq/L Potassium 4.5 (3.5-5.1) mEq/L Chloride 103 (98-107) mEq/L Carbon Dioxide 26 (21-32) mEq/L Anion Gap 10.5 (5-15) BUN 25 H (7-18) mg/dL Creatinine 1.0 (0.7-1.3) mg/dL Est Cr Clr Drug Dosing 98.80 mL/min Estimated GFR (MDRD) > 60 (>60) mL/min BUN/Creatinine Ratio 25.0 H (14-18) Glucose 206 H (74-106) mg/dL POC Glucose (70-105) mg/dL Calcium 8.3 L (8.5-10.1) mg/dL Magnesium 1.9 (1.8-2.4) mg/dl Total Bilirubin (0.2-1.0) mg/dL AST (15-37) U/L ALT (16-63) U/L Alkaline Phosphatase (46-116) U/L CK-MB (CK-2) 0.7 (0-3.6) ng/ml Troponin I < 0.017 (0.00-0.056) ng/mL C-Reactive Protein 0.2 (<1.0) mg/dL NT-Pro-B Natriuret Pep (0-125) pg/mL Total Protein (6.4-8.2) g/dl Albumin (3.4-5.0) g/dl Globulin gm/dL Albumin/Globulin Ratio (1-2) Triglycerides 121 (<150) mg/dL Cholesterol 148 (<200) mg/dL LDL Cholesterol Direct 96 (<100) mg/dL HDL Cholesterol 34.0 L (40-59) mg/dL Urine Color (Yellow) Urine Appearance (Clear) Urine pH (5.0-8.0) Ur Specific [place] (1.005-1.030) Urine Protein (Negative) Urine Glucose (UA) (Negative) Urine Ketones (Negative) Urine Occult Blood (Negative) Urine Nitrite (Negative) Urine Bilirubin (Negative) Urine Urobilinogen (0.2-1.0) Ur Leukocyte Esterase (Negative) Urine RBC (0-5) /hpf Urine WBC (0-5) /hpf Ur Epithelial Cells (0-5) /hpf Urine Bacteria (FEW) /hpf Urine Mucus (FEW) /hpf Ur Random Creatinine (30.0-125.0) mg/dL Ur Random Microalbumin (1.3-20.0) mg/L Microalb/Creat Ratio (0-30) mg/g Urine Opiates Screen (NEGATIVE) Ur Buprenorphine Scrn (NEGATIVE) Ur Oxycodone Screen (NEGATIVE) Urine Methadone Screen (NEGATIVE) Ur Propoxyphene Screen (NEGATIVE) Ur Barbiturates Screen (NEGATIVE) Ur Tricyclics Screen (NEGATIVE) Ur Phencyclidine Scrn (NEGATIVE) Ur Amphetamine Screen (NEGATIVE) U Methamphetamines Scrn (NEGATIVE) U Benzodiazepines Scrn (NEGATIVE) U Cocaine Metab Screen (NEGATIVE) U Marijuana (THC) Screen (NEGATIVE) 06/18/18 Range/Units 06:13 WBC (4.23-9.07) K/mm3 RBC (4.63-6.08) M/mm3 Hgb (13.7-17.5) gm/L Hct (40.1-51.0) % MCV (79.0-92.2) fl MCH (25.7-32.2) pg MCHC (32.2-35.5) g/dl RDW Std Deviation (35.1-43.9) fL Plt Count (163-337) K/mm3 MPV (9.4-12.3) fl Neut % (Auto) (34.0-67.9) % Lymph % (Auto) (21.8-53.1) % [place] % (Auto) (5.3-12.2) % Eos % (Auto) (0.8-7.0) Baso % (Auto) (0.1-1.2) % Neut # (Auto) (1.78-5.38) K/mm3 Lymph # (Auto) (1.32-3.57) K/mm3 [place] # (Auto) (0.30-0.82) K/mm3 Eos # (Auto) (0.04-0.54) K/mm3 Baso # (Auto) (0.01-0.08) K/mm3 ESR (0-15) mm/hr PT (9.5-12.1) SECONDS INR D-Dimer, Quantitative (0.19-0.50) mg/L Sodium (136-145) mEq/L Potassium (3.5-5.1) mEq/L Chloride (98-107) mEq/L Carbon Dioxide (21-32) mEq/L Anion Gap (5-15) BUN (7-18) mg/dL Creatinine (0.7-1.3) mg/dL Est Cr Clr Drug Dosing mL/min Estimated GFR (MDRD) (>60) mL/min BUN/Creatinine Ratio (14-18) Glucose (74-106) mg/dL POC Glucose 195 H (70-105) mg/dL Calcium (8.5-10.1) mg/dL Magnesium (1.8-2.4) mg/dl Total Bilirubin (0.2-1.0) mg/dL AST (15-37) U/L ALT (16-63) U/L Alkaline Phosphatase (46-116) U/L CK-MB (CK-2) (0-3.6) ng/ml Troponin I (0.00-0.056) ng/mL C-Reactive Protein (<1.0) mg/dL NT-Pro-B Natriuret Pep (0-125) pg/mL Total Protein (6.4-8.2) g/dl Albumin (3.4-5.0) g/dl Globulin gm/dL Albumin/Globulin Ratio (1-2) Triglycerides (<150) mg/dL Cholesterol (<200) mg/dL LDL Cholesterol Direct (<100) mg/dL HDL Cholesterol (40-59) mg/dL Urine Color (Yellow) Urine Appearance (Clear) Urine pH (5.0-8.0) Ur Specific [place] (1.005-1.030) Urine Protein (Negative) Urine Glucose (UA) (Negative) Urine Ketones (Negative) Urine Occult Blood (Negative) Urine Nitrite (Negative) Urine Bilirubin (Negative) Urine Urobilinogen (0.2-1.0) Ur Leukocyte Esterase (Negative) Urine RBC (0-5) /hpf Urine WBC (0-5) /hpf Ur Epithelial Cells (0-5) /hpf Urine Bacteria (FEW) /hpf Urine Mucus (FEW) /hpf Ur Random Creatinine (30.0-125.0) mg/dL Ur Random Microalbumin (1.3-20.0) mg/L Microalb/Creat Ratio (0-30) mg/g Urine Opiates Screen (NEGATIVE) Ur Buprenorphine Scrn (NEGATIVE) Ur Oxycodone Screen (NEGATIVE) Urine Methadone Screen (NEGATIVE) Ur Propoxyphene Screen (NEGATIVE) Ur Barbiturates Screen (NEGATIVE) Ur Tricyclics Screen (NEGATIVE) Ur Phencyclidine Scrn (NEGATIVE) Ur Amphetamine Screen (NEGATIVE) U Methamphetamines Scrn (NEGATIVE) U Benzodiazepines Scrn (NEGATIVE) U Cocaine Metab Screen (NEGATIVE) U Marijuana (THC) Screen (NEGATIVE) Med Orders - Current: Current Medications Acetaminophen (Tylenol) 650 mg PO Q4H PRN PRN Reason: Pain (Mild 1-3)/fever Hydrocodone Bitart/Acetaminophen (Acworth 325-5 Mg) 1 tab PO Q4H PRN PRN Reason: Pain (moderate 4-6) Albuterol/Ipratropium (Duoneb 3.0-0.5 Mg/3 Ml) 3 ml NEB Q4H PRN PRN Reason: Shortness Of Breath/wheezing Bisacodyl (Dulcolax) 5 mg PO DAILY PRN PRN Reason: Constipation Colchicine (Colcrys) 0.6 mg PO BID [facility] Last Admin: 06/17/18 21:16 Dose: 0.6 mg Docusate Sodium (Colace) 100 mg PO BID PRN PRN Reason: Constipation Enoxaparin Sodium (Lovenox) 40 mg SUBCUT DAILY [facility] Hydralazine HCl (Apresoline) 20 mg IVPUSH Q4H PRN PRN Reason: Hypertension Hydromorphone HCl (Dilaudid) 0.25 mg IVPUSH Q2H PRN PRN Reason: Pain (severe 7-10) Promethazine HCl 6.25 mg/ (Sodium Chloride) 50.25 mls @ 100 mls/hr IV Q6H PRN PRN Reason: Nausea/Vomiting Sodium Chloride (Normal Saline) 1,000 mls @ 125 mls/hr IV ASDIRECTED [facility] Last Admin: 06/18/18 00:25 Dose: 125 mls/hr Ibuprofen (Motrin) 600 mg PO TID@0700,1400,2100 [facility] Last Admin: 06/18/18 06:28 Dose: 600 mg Insulin Human Lispro (Humalog) 0 unit SUBCUT QIDACANDBED [facility]; Protocol Last Admin: 06/17/18 21:23 Dose: 6 units Lorazepam (Ativan) 2 mg IVPUSH Q4H PRN PRN Reason: Seizures Lorazepam (Ativan) 1 mg IV Q6H PRN PRN Reason: Anxiety Magnesium Sulfate (Pharmacy To Dose - Magnesium Replacement) 1 dose .XX ASDIRECTED [facility] Metformin HCl (Glucophage) 1,000 mg PO BIDMEALS [facility] Last Admin: 06/18/18 06:27 Dose: 1,000 mg Metoprolol Tartrate (Lopressor) 5 mg IVPUSH Q4H PRN PRN Reason: Tachycardia Miscellaneous Information (Remove Patch) 0 ea TRDERM DAILY [facility] Nicotine (Habitrol) 21 mg TRDERM DAILY [facility] Last Admin: 06/17/18 15:52 Dose: 21 mg Non-Formulary Medication (Canagliflozin [Invokana]) 500 mg PO DAILY [facility] Ondansetron HCl (Zofran) 4 mg IV Q6H PRN PRN Reason: Nausea/Vomiting Polyethylene Glycol (Miralax) 17 gm PO DAILY PRN PRN Reason: Constipation Potassium Chloride (Pharmacy To Dose - Potassium Replacement) 1 dose .XX ASDIRECTED [facility] Senna/Docusate Sodium (Senna Plus) 1 tab PO BID PRN PRN Reason: Constipation Temazepam (Restoril) 15 mg PO BEDTIME PRN PRN Reason: Sleep Discontinued Medications Sodium Chloride (Normal Saline) 1,000 mls @ 999 mls/hr IV ONETIME ONE Stop: 06/17/18 12:32 Last Admin: 06/17/18 12:12 Dose: 999 mls/hr Ibuprofen (Motrin) 600 mg PO ONETIME ONE Stop: 06/17/18 15:01 Last Admin: 06/17/18 15:52 Dose: 600 mg Nitroglycerin (Nitrostat) 0.4 mg SL ONETIME ONE Stop: 06/17/18 11:33 Last Admin: 06/17/18 12:13 Dose: 0.4 mg - Exam General: Alert, Oriented, Cooperative, No Acute Distress HEENT: Pupils Equal, Pupils Reactive, EOMI, Mucous Membr. Moist/[place] Neck: Supple, Trachea Midline Lungs: Clear to Auscultation, Normal Respiratory Effort Cardiovascular: Regular Rate, Regular Rhythm GI/Abdominal Exam: Normal Bowel Sounds, Soft, Non-Tender, No Organomegaly, No Distention, No Abnormal Bruit, No Mass, Pelvis Stable (Male) Exam: No Hernia, Deferred Back Exam: Normal Inspection, Full Range of Motion Extremities: Normal Inspection, Normal Range of Motion, Non-Tender, No Pedal Edema, Normal Capillary Refill Peripheral Pulses: 3+: Dorsalis Pedis (L), Dorsalis Pedis (R) Skin: Warm, Dry, Intact Neurological: No New Focal Deficit Psy/Mental Status: Alert, Normal Affect, Normal Mood - Problem List Review Problem List Initiated/Reviewed/Updated: Yes - My Orders Last 24 Hours: My Active Orders 06/17/18 14:23 LORazepam [Ativan] 2 mg IVPUSH Q4H PRN Metoprolol Tartrate [Lopressor] 5 mg IVPUSH Q4H PRN hydrALAZINE [Apresoline] 20 mg IVPUSH Q4H PRN 06/17/18 14:24 Height and Weight [RC] 04 Intake and Output [RC] 04,16 VTE/DVT Education [RC] 09,21 Vital Signs [RC] Q4HR Acetaminophen [Tylenol] 650 mg PO Q4H PRN Acetaminophen/HYDROcodone [Acworth 325-5 MG] 1 tab PO Q4H PRN Albuterol/Ipratropium [DuoNeb 3.0-0.5 MG/3 ML] 3 ml NEB Q4H PRN Bisacodyl [Dulcolax] 5 mg PO DAILY PRN Docusate Sodium [Colace] 100 mg PO BID PRN Docusate Sodium/Sennosides [Senna Plus] 1 tab PO BID PRN HYDROmorphone [Dilaudid] 0.25 mg IVPUSH Q2H PRN LORazepam [Ativan] 1 mg IV Q6H PRN Ondansetron [Zofran] 4 mg IV Q6H PRN Polyethylene Glycol 3350 [MiraLAX] 17 gm PO DAILY PRN Promethazine [Phenergan] 6.25 mg Sodium Chloride 0.9% [Normal Saline] 50 ml IV Q6H Temazepam [Restoril] 15 mg PO BEDTIME PRN Resuscitation Status Routine 06/17/18 14:30 Magnesium Rep Pharmacy to Dose [Pharmacy to Dose - Magnesium Replacement] 1 dose .XX ASDIRECTED Potassium Rep Pharmacy to Dose [Pharmacy to Dose - Potassium Replacement] 1 dose .XX ASDIRECTED 06/17/18 14:40 Accu Check [Blood Glucose Check, Bedside] [RC] QIDACANDBED 06/17/18 14:45 Sodium Chloride 0.9% [Normal Saline] 1,000 ml IV ASDIRECTED 06/17/18 17:00 Insulin Lispro [HumaLOG] See Protocol SUBCUT QIDACANDBED metFORMIN [Glucophage] 1,000 mg PO BIDMEALS 06/17/18 20:00 EKG 12 Lead [EK] Routine 06/17/18 20:31 EKG 12 Lead [EKG Documentation Completion] [RC] AM 06/17/18 21:00 Colchicine [Colcrys] 0.6 mg PO BID Ibuprofen [Motrin] 600 mg PO TID@0700,1400,2100 06/17/18 Lunch Consistent Carbohydrate Diet [DIET] 06/18/18 08:20 CKMB [CHEM] Q6H TROPONIN I [CHEM] Q6H 06/18/18 09:00 Canagliflozin [Invokana] 500 mg PO DAILY Enoxaparin [Lovenox] 40 mg SUBCUT DAILY Remove Patch 0 ea TRDERM DAILY 06/19/18 05:11 BASIC METABOLIC PANEL,BMP [CHEM] AM CBC WITH AUTO DIFF [HEME] AM MAGNESIUM [CHEM] AM 06/20/18 05:11 BASIC METABOLIC PANEL,BMP [CHEM] AM CBC WITH AUTO DIFF [HEME] AM MAGNESIUM [CHEM] AM 06/21/18 05:11 MAGNESIUM [CHEM] AM - Plan Plan:: Assessment/Plan: Acute: Acute Pericarditis versus Diffuse Early Repolarization * Suspect 2/2 Illicit drug Use * Chest pain this AM, progressively worsened throughout day; denies chest pain this AM * Evaluation * Troponin normal * EKG showed diffuse ST elevation - repeat serial EKG q6H: about the same * CXR normal * ESR27--> 23; fairly benign; CRP is wnl * Serial CE x 3: all negative * Lipid panel- abnormal * 2D Echo ordered for further evaluation: he understood this may not be done until Wednesday and report may not come back Wednesday but he is in agreement if he is stable and on treatment; he can come back to get it done outpatient * Daily labs * Management: Continue Motrin 600 mg 3x/day PO and Colchicine 0.6 mg 2x/day PO plus monitor with telemetry Diabetes Mellitus Type II * Not well controlled; A1C is 9.40 on this admission * Does have prior diagnosis and had been on metformin, invokana and trulicity - stopped taking meds after he lost insurance * Glucose was 350 upon admission * Administer sliding scale insulin for now * Glucose checks QID AC and bed GERD * Cough but only in AM and PM * He is on H2B for now; will d/c him with it * Advised to quit smoking * Avoid spicy food or carbonated drinks Dyslipidemia * 2/2 DM2 * HLD is low * ADA/AHA diet * Consider statin on discharge Chronic: * Substance Abuse/Use - methamphetamine, marijuana, cocaine * Drug screen is negative * Alcohol use - 6 drinks daily * Smoking - 1 ppd * Smoking cessation counseling and nicotine patch given Plan: He is clinically stable Continue current treatment Encourage to ambulate as tolerated DVT/GI prophylaxis: SCDs and H2B Code status: Full At this point, I believe he does not have infectious pericarditis but idiopathic as evidenced by his lack of significantly abnormal inflammatory markers and cardiac enzymes but we will proceed with treatment above. He agrees for discharge and come back for outpatient 2D echo once his glucose level is controlled.
[2018-06-18] MEDS ORDERED: LORazepam 0.5 MG Tab PO PRN (08:16)
[2018-06-18] MEDS: Enoxaparin 40 MG/0.4 ML Syringe SUBCUT SCH (08:52)
[2018-06-18] MEDS: Insulin Lispro 100 Unit/ML 3 ML KwikPen SUBCUT SCH ×4 (08:53→21:51)
[2018-06-18] MEDS: Nicotine 21 MG/24 Hr Patch TRDERM SCH (08:54)
[2018-06-18] MEDS: Colchicine 0.6 MG Tab PO SCH ×2 (08:54→20:49)
[2018-06-18] MEDS: Canagliflozin [Invokana] 300 MG PO SCH (08:54)
[2018-06-18] MEDS: Lisinopril 10 MG Tab PO SCH (08:58)
[2018-06-18] MEDS ORDERED: Simvastatin 40 MG Tab PO SCH (21:00)
[2018-06-19] MEDS: Ibuprofen 600 MG Tab PO SCH ×2 (06:25→14:27)
[2018-06-19] MEDS: Sodium Chloride 0.9% 1,000 ML IV SCH (06:46)
[2018-06-19] MEDS ORDERED: metFORMIN 500 MG Tab PO SCH (08:00)
[2018-06-19] MEDS: Insulin Lispro 100 Unit/ML 3 ML KwikPen SUBCUT SCH ×2 (08:42→14:27)
[2018-06-19] MEDS: Nicotine 21 MG/24 Hr Patch TRDERM SCH (08:43)
[2018-06-19] MEDS: Colchicine 0.6 MG Tab PO SCH (08:43)
[2018-06-19] MEDS: Lisinopril 10 MG Tab PO SCH (08:43)
[2018-06-19] MEDS: Enoxaparin 40 MG/0.4 ML Syringe SUBCUT SCH (08:44)
[2018-06-19] MEDS: Canagliflozin [Invokana] 300 MG PO SCH (08:44)
[2018-06-19 08:45] VITALS: BP 136/97
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
== END 2018-06-19 13:10 | disposition home or self-care (01) ==
LOC: JD.ED 11:09 → JD.MS 14:04
PROVIDERS: ADMIT Internal Medicine; ATTEND Internal Medicine
DX: I30.9 Acute pericarditis, unspecified (principal); E11.9 Type 2 diabetes mellitus without complications; F17.210 Nicotine dependence, cigarettes, uncomplicated; K21.9 Gastro-esophageal reflux disease without esophagitis; E78.5 Hyperlipidemia, unspecified; F19.10 Other psychoactive substance abuse, uncomplicated; Z78.9 Other specified health status; R19.5 Other fecal abnormalities
CPT/HCPCS: 36415; 71046; 80048; 80053; 80061; 80306; 81001; 82043; 82553; 82962; 83036; 83735; 83880; 84484; 85025; 85379; 85610; 85652; 86140; 93005; 96360; 96361; 96372; 99285; A9270; G0378; J1650; J1815; J7040; 93010

== ENCOUNTER 2018-09-09 14:12 | Emergency (ER) | payer MEDICAID ==
[2018-09-09] MEDS ORDERED: Sodium Chloride 0.9% 10 ML Syringe FLUSH PRN (14:44)
[2018-09-09] MEDS ORDERED: Insulin Regular, Human 100 Units/ML 3 ML Vial IVPUSH ONE ×2 (14:44→16:34)
[2018-09-09] MEDS ORDERED: Sodium Chloride 0.9% 1,000 ML IV SCH ×2 (14:45→16:45)
--- NOTE | 2018-09-09 16:20 | EDM.PDOC ---
ED HPI GENERAL MEDICAL PROBLEM - General Chief Complaint: Diabetic Complaint Stated Complaint: HIGH BLOOD SUGAR Time Seen by Provider: 09/09/18 14:31 Source of Information: Reports: Patient, Family, RN Notes Reviewed - History of Present Illness INITIAL COMMENTS - FREE TEXT/NARRATIVE: 37 year old male comes in with elevated glucose. He is known diabetic on oral meds. However he ran out of his invokana, about a month ago. He states it costs $500 a month and was not able to afford that. Continued taking the Glucophage. Not sure what his sugars been running up until today but yesterday and today he is felt weak tired, no energy. Becoming more thirsty. They did check his sugar a while ago and it registered greater than 600. He's had no nausea vomiting. No chest pain or difficulty breathing. No fever or chills. - Related Data Allergies Allergy/AdvReac Type Severity Reaction Status Date / Time No Known Allergies Allergy Verified 09/09/18 14:26 Home Meds: Home Meds LORazepam 0.5 mg PO BEDTIME PRN 06/17/18 [History] Canagliflozin [Invokana] 300 mg PO DAILY #30 tablet 06/19/18 [Rx] Colchicine 0.6 mg PO BID #60 tablet 06/19/18 [Rx] Dulaglutide [Trulicity] 0.75 mg SQ ASDIRECTED #1 ml 06/19/18 [Rx] Famotidine 40 mg PO BID #60 tablet 06/19/18 [Rx] Ibuprofen [Motrin] 600 mg PO TID@0700,1400,2100 #13 tablet 06/19/18 [Rx] Simvastatin [Zocor] 40 mg PO BEDTIME #30 tablet 06/19/18 [Rx] metFORMIN [Glucophage] 1,000 mg PO BIDMEALS #60 tab 06/19/18 [Rx] Past Medical History - Past Health History Medical/Surgical History: Denies Medical/Surgical History HEENT History: Reports: Impaired Vision Other HEENT History: 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 Cardiovascular History: Reports: None Respiratory History: Reports: None Gastrointestinal History: Reports: None Genitourinary History: Reports: None Musculoskeletal History: Reports: None Other Musculoskeletal History: history of pinched nerve Neurological History: Reports: None Psychiatric History: Reports: Addiction Endocrine/Metabolic History: Reports: Diabetes, Type II Hematologic History: Reports: None Immunologic History: Reports: None Oncologic (Cancer) History: Reports: None - Past Surgical History Head Surgeries/Procedures: Reports: None Social & Family History - Family History Family Medical History: Noncontributory - Caffeine Use Caffeine Use: Reports: Soda Caffeine Use Comment: 1 cup/day - Recreational Drug Use Recreational Drug Use: Yes Drug Use in Last 12 Months: Yes Recreational Drug Type: Reports: Methamphetamine Other Recreational Drug Type: Patient states he last used in June of 2018 - Living Situation & Occupation Living situation: Reports: Occupation: Employed ED ROS GENERAL - Review of Systems Review Of Systems: See Below Constitutional: Reports: Fatigue (Yesterday and today). Denies: Fever, Chills HEENT: Reports: No Symptoms Respiratory: Denies: Shortness of Breath, Wheezing Cardiovascular: Denies: Chest Pain GI/Abdominal: Denies: Abdominal Pain, Nausea, Vomiting Musculoskeletal: Reports: Other (Feels achy) Skin: Reports: No Symptoms Neurological: Reports: Dizziness ED EXAM GENERAL NO PERIP PULSE - Physical Exam Exam: See Below General Appearance: Alert, No Apparent Distress Eye Exam: Bilateral Eye: PERRL Throat/Mouth: Normal Inspection Head: Atraumatic Neck: Supple Respiratory/Chest: No Respiratory Distress, Lungs Clear, Normal Breath Sounds Cardiovascular: Regular Rate, Rhythm GI/Abdominal: Soft, Non-Tender Back Exam: Normal Inspection Extremities: Normal Inspection. No: Pedal Edema, Leg Pain Neurological: Alert, Oriented, No Motor/Sensory Deficits Skin Exam: Warm, Dry, Normal Color Course - Vital Signs Last Recorded V/S: Last Vital Signs Temp 97.2 F 09/09/18 14:23 Pulse 106 H 09/09/18 18:19 Resp 18 09/09/18 18:19 BP 129/79 09/09/18 18:19 Pulse Ox 97 09/09/18 18:19 - Orders/Labs/Meds Orders: Active Orders 24 hr Category Date Time Status POC Glucose [Blood Glucose Check, Bedside] [] ONETIME Care 09/09/18 16:14 Active POC Glucose [Blood Glucose Check, Bedside] [] ONETIME Care 09/09/18 17:30 Active Labs: Laboratory Tests 09/09/18 09/09/18 09/09/18 Range/Units 14:35 14:35 14:35 WBC 7.66 (4.23-9.07) K/mm3 RBC 4.39 L (4.63-6.08) M/mm3 Hgb 13.6 L (13.7-17.5) gm/L Hct 38.9 L (40.1-51.0) % MCV 88.6 (79.0-92.2) fl MCH 31.0 (25.7-32.2) pg MCHC 35.0 (32.2-35.5) g/dl RDW Std Deviation 40.2 (35.1-43.9) fL Plt Count 178 (163-337) K/mm3 MPV 10.3 (9.4-12.3) fl Neut % (Auto) 58.0 (34.0-67.9) % Lymph % (Auto) 29.1 (21.8-53.1) % [place] % (Auto) 9.7 (5.3-12.2) % Eos % (Auto) 2.6 (0.8-7.0) Baso % (Auto) 0.3 (0.1-1.2) % Neut # (Auto) 4.45 (1.78-5.38) K/mm3 Lymph # (Auto) 2.23 (1.32-3.57) K/mm3 [place] # (Auto) 0.74 (0.30-0.82) K/mm3 Eos # (Auto) 0.20 (0.04-0.54) K/mm3 Baso # (Auto) 0.02 (0.01-0.08) K/mm3 Sodium 133 L (136-145) mEq/L Potassium 4.4 (3.5-5.1) mEq/L Chloride 99 (98-107) mEq/L Carbon Dioxide 28 (21-32) mEq/L Anion Gap 10.4 (5-15) BUN 22 H (7-18) mg/dL Creatinine 1.2 (0.7-1.3) mg/dL Est Cr Clr Drug Dosing 93.41 mL/min Estimated GFR (MDRD) > 60 (>60) mL/min BUN/Creatinine Ratio 18.3 H (14-18) Glucose 410 H (74-106) mg/dL POC Glucose (70-105) mg/dL Calcium 9.0 (8.5-10.1) mg/dL Magnesium 1.5 L (1.8-2.4) mg/dl Total Bilirubin 0.2 (0.2-1.0) mg/dL AST 15 (15-37) U/L ALT 36 (16-63) U/L Alkaline Phosphatase 223 H (46-116) U/L Total Protein 6.7 (6.4-8.2) g/dl Albumin 3.0 L (3.4-5.0) g/dl Globulin 3.7 gm/dL Albumin/Globulin Ratio 0.8 L (1-2) Ketones 0.27 (0.0-0.3) mM 09/09/18 09/09/18 09/09/18 Range/Units 15:34 16:25 17:30 WBC (4.23-9.07) K/mm3 RBC (4.63-6.08) M/mm3 Hgb (13.7-17.5) gm/L Hct (40.1-51.0) % MCV (79.0-92.2) fl MCH (25.7-32.2) pg MCHC (32.2-35.5) g/dl RDW Std Deviation (35.1-43.9) fL Plt Count (163-337) K/mm3 MPV (9.4-12.3) fl Neut % (Auto) (34.0-67.9) % Lymph % (Auto) (21.8-53.1) % [place] % (Auto) (5.3-12.2) % Eos % (Auto) (0.8-7.0) Baso % (Auto) (0.1-1.2) % Neut # (Auto) (1.78-5.38) K/mm3 Lymph # (Auto) (1.32-3.57) K/mm3 [place] # (Auto) (0.30-0.82) K/mm3 Eos # (Auto) (0.04-0.54) K/mm3 Baso # (Auto) (0.01-0.08) K/mm3 Sodium (136-145) mEq/L Potassium (3.5-5.1) mEq/L Chloride (98-107) mEq/L Carbon Dioxide (21-32) mEq/L Anion Gap (5-15) BUN (7-18) mg/dL Creatinine (0.7-1.3) mg/dL Est Cr Clr Drug Dosing mL/min Estimated GFR (MDRD) (>60) mL/min BUN/Creatinine Ratio (14-18) Glucose (74-106) mg/dL POC Glucose 333 H 340 H 163 H (70-105) mg/dL Calcium (8.5-10.1) mg/dL Magnesium (1.8-2.4) mg/dl Total Bilirubin (0.2-1.0) mg/dL AST (15-37) U/L ALT (16-63) U/L Alkaline Phosphatase (46-116) U/L Total Protein (6.4-8.2) g/dl Albumin (3.4-5.0) g/dl Globulin gm/dL Albumin/Globulin Ratio (1-2) Ketones (0.0-0.3) mM Meds: Medications Discontinued Medications Generic Name Dose Route Start Last Admin Trade Name Freq PRN Reason Stop Dose Admin Sodium Chloride 1,000 mls @ 999 mls/hr 09/09/18 14:45 09/09/18 15:00 Normal Saline IV 999 mls/hr ONETIME MARTÍN Administration Sodium Chloride 1,000 mls @ 999 mls/hr 09/09/18 16:45 09/09/18 16:40 Normal Saline IV 999 mls/hr ONETIME MARTÍN Administration Insulin Human Regular 5 unit 09/09/18 14:44 09/09/18 15:00 Humulin R IVPUSH 09/09/18 14:45 5 units ONETIME ONE Administration Protocol Insulin Human Regular 4 unit 09/09/18 16:34 09/09/18 16:41 Humulin R IVPUSH 09/09/18 16:35 4 units ONETIME ONE Administration Protocol Sodium Chloride 10 ml 09/09/18 14:44 09/09/18 15:00 Saline Flush FLUSH 10 ml ASDIRECTED PRN Administration Keep Vein Open - Re-Assessments/Exams Free Text/Narrative Re-Assessment/Exam: 09/10/18 16:45 gave glucose 5 mg IV and than 4 mg IV, 2 liters NS, glucose came down to 166, feeling much better, discharge instr. as documented. Departure - Departure Time of Disposition: 18:05 Disposition: Home, Self-Care 01 Condition: Fair Clinical Impression: Hyperglycemia - Discharge Information Instructions: Hyperglycemia, [id number] Referrals: Elizabeth Vora MD [Primary Care Provider] - Forms: ED Department Discharge Additional Instructions: Try avoid all foods that are going to be high sugar content including most carbohydrate foods, especially cookies, bars, cake, that type of food. Your diet should be mostly fruit vegetables and protein being careful not to overeat but rather regular meals and snacks. Continue your metformin as previously prescribed. get back on the Invokana as soon as possible, consider getting a 1 week supply from your pharmacy while you wait for your medication from [facility]. Follow up clinic as needed, return to ED as needed. - My Orders Last 24 Hours: My Active Orders 09/09/18 16:14 POC Glucose [Blood Glucose Check, Bedside] [RC] ONETIME 09/09/18 17:30 POC Glucose [Blood Glucose Check, Bedside] [RC] ONETIME - Assessment/Plan Last 24 Hours: My Active Orders 09/09/18 16:14 POC Glucose [Blood Glucose Check, Bedside] [RC] ONETIME 09/09/18 17:30 POC Glucose [Blood Glucose Check, Bedside] [RC] ONETIME
[2018-09-09 18:25] VITALS: BP 129/79
== END 2018-09-09 18:19 | disposition home or self-care (01) ==
LOC: SUPCPDRO 14:12 → JD.ED 14:12
DX: E11.65 Type 2 diabetes mellitus with hyperglycemia (principal); Z79.899 Other long term (current) drug therapy; Z79.84 Long term (current) use of oral hypoglycemic drugs
CPT/HCPCS: 36415; 80053; 82009; 82962; 83735; 85025; 96361; 96374; 96376; 99285; J1815; J7040